=== PATIENT | female | born 1955 | race Caucasian/White ===

== ENCOUNTER 2024-03-08 14:10 | Outpatient (REF) | payer MEDICARE, SELFPAY ==
--- OUTSIDE RECORDS SUMMARY | 2024-03-08 14:14 | XMS_ITS ---
Author Name [facility] Organization Unknown Problems Problem Status Onset Date Problem Type Date of Resoluti on Source Pain in left ankle and joints of left foot active EncounterDiagnosisAct [facility] Pain in right ankle and joints of right foot active EncounterDiagnosisAct HHCCT
--- OUTSIDE RECORDS SUMMARY | 2024-03-08 14:14 | XMS_ITS | Continuity of Care Document ---
Author Organization [facility] Address [address] [place] [address]- Support Name Relationship Address Phone PLASSE, JONATAN Personal Relationship Unknown Unava ilable PLASSE, JONATAN Personal Relationship Unknown Unava ilable PLASSE, JONATAN Personal Relationship Unknown Unava ilable PLASSE, JONATAN Personal Relationship Unknown Unava ilable PLASSE, JONATAN Personal Relationship Unknown Unava ilable PLASSE, JONATAN Personal Relationship Unknown Unava ilable PLASSE, JONATAN Personal Relationship Unknown Unava ilable PLASSE, JONATAN Personal Relationship Unknown Unava ilable PLASSE, JONATAN Personal Relationship Unknown Unava ilable PLASSE, JONATAN Personal Relationship Unknown Unava ilable PLASSE, JONATAN Personal Relationship Unknown Unava ilable PLASSE, JONATAN Personal Relationship Unknown Unava ilable PLASSE, JONATAN Personal Relationship Unknown Unava ilable HORTON, RODNEY sibling Unknown Unavailab le PLASSE, JONATAN Personal Relationship Unknown Unava ilable PLASSE, JONATAN Personal Relationship Unknown Unava ilable PLASSE, JONATAN Personal Relationship Unknown Unava ilable PLASSE, JONATAN Personal Relationship Unknown Unava ilable PLASSE, JONATAN Personal Relationship Unknown Unava ilable PLASSE, JONATAN Personal Relationship Unknown Unava ilable PLASSE, JONATAN Personal Relationship Unknown Unava ilable PLASSE, JONATAN Personal Relationship Unknown Unava ilable PLASSE, JONATAN Personal Relationship Unknown Unava ilable PLASSE, JONATAN Personal Relationship Unknown Unava ilable PLASSE, JONATAN Personal Relationship Unknown Unava ilable PLASSE, JONATAN Personal Relationship Unknown Unava ilable PLASSE, JONATAN Personal Relationship Unknown Unava ilable PLASSE, JONATAN Personal Relationship Unknown Unava ilable PLASSE, JONATAN Personal Relationship Unknown Unava ilable PLASSE, JONATAN Personal Relationship Unknown Unava ilable PLASSE, JONATAN Personal Relationship Unknown Unava ilable PLASSE, JONATAN Personal Relationship Unknown Unava ilable PLASSE, JONATAN Personal Relationship Unknown Unava ilable PLASSE, JONATAN Personal Relationship Unknown Unava ilable PLASSE, JONATAN Personal Relationship Unknown Unava ilable PLASSE, JONATAN Personal Relationship Unknown Unava ilable PLASSE, JONATAN spouse Unknown Unavailable PLAIS, JURGEN child Unknown Unavailable PLASSE, JONATAN Personal Relationship Unknown Unava ilable PLASSE, JONATAN Personal Relationship Unknown Unava ilable Care Team Providers Care Family Law Mediator Name Role Phone Min TRUCK DRIVER INSTRUCTOR, Alyssa Brown Primary Care Physician Encounter [facility] Date(s): 01/13/24 - 02/12/24 [facility] Adult [address] [place], [place] [address] Encounter Type: Triage Allergies, Adverse Reactions, Alerts Substance Criticality Severity Reaction Reaction Severity Status clindamycin Active penicillin rash Active oxyCODONE Hallucinations Activ e Watermelon epi pen Banana Active sulfADIAZINE rash Active Adhesive Bandage Unable to assess criticality Unknown Active [place] itchy Active Nuts itchy Active Tomatoes itch Active Rice itchy Active Immunizations Given and Recorded Vaccine Date Status Refusal Reason tetanus/diphtheria/pertussis, acel(Tdap) 12/14/23 Recorded SARS-CoV-2(COVID-19)mRNA-LNP vac([id number]) 12/08/23 Recorded influenza virus vaccine, inactivated 12/02/23 Zack rded influenza virus vaccine, inactivated 11/22/22 Zack rded influenza virus vaccine, inactivated 11/22/21 Zack rded influenza virus vaccine, inactivated 12/14/20 Zack rded influenza virus vaccine, inactivated 12/17/18 Give n influenza virus vaccine, inactivated 12/28/17 Zack rded influenza virus vaccine, inactivated 02/12/17 Zack rded influenza virus vaccine, inactivated 12/29/16 Zack rded influenza virus vaccine, inactivated 1 12/22/15 Re corded influenza virus vaccine, inactivated 12/25/14 Zack rded influenza virus vaccine, inactivated 11/03/12 Zack rded influenza virus vaccine, inactivated 12/22/11 Zack rded influenza virus vaccine, inactivated 01/13/11 Zack rded influenza virus vaccine, inactivated 12/19/09 Zack rded SARS-CoV-2 (COVID-19) mRNA-1273 vaccine 2 12/13/22 Recorded SARS-CoV-2 (COVID-19) mRNA-1273 vaccine 06/20/21 R ecorded SARS-CoV-2 (COVID-19) mRNA-1273 vaccine 06/20/21 R ecorded SARS-CoV-2 (COVID-19) mRNA-1273 vaccine 01/17/21 R ecorded SARS-CoV-2 (COVID-19) mRNA-1273 vaccine 04/30/20 R ecorded SARS-CoV-2 (COVID-19) mRNA-1273 vaccine 04/02/20 R ecorded RSV vaccine preF3, recombinant 12/01/22 Recorded pneumococcal 20-valent conjugate vaccine 3 11/04/22 Given [id number] bivalent booster vax 08/11/22 Recorded tetanus-diphtheria toxoids (Td) 04/23/22 Given SARS-CoV-2 mRNA ([id number]) vax 4 12/06/21 Recorded zoster vaccine, inactivated 10/19/20 Recorded zoster vaccine, inactivated 08/16/20 Recorded Flu Vaccine 12/22/19 Recorded Influenza Virus Vaccine (oldterm) 12/20/19 Recorde d Zoster Vaccine Live 10/01/15 Recorded Tetanus Toxoid 12/06/12 Recorded Mumps Virus Vaccine 07/17/11 Recorded Varicella Virus Vaccine 01/04/97 Recorded Rubella Virus Vaccine 01/04/97 Recorded 1Location History: [facility] employer 2Result Comment: amber thomas 3Result Comment: [id number] 4Result Comment: Moderna Covid Bivalent Booster [facility] Pharmacy Medications amLODIPine 5 mg oral tablet 1 tablet, By Mouth, Daily, # 90 tablet, 1 Refills, Maintenance, 10/09/23 6:43:00 AM EDT, [id number], 158, cm, 07/07/23 9:06:00 EDT, Height, 98.9, kg, 08/22/22 10:20:00 EDT, Dry Weight Start Date: 10/09/23 Status: Ordered Quantity: 90.0 Unit: tablet Repeat number: 1 atorvastatin 40 mg oral tablet 1 tablet, By Mouth, Daily, # 90 tablet, 1 Refills, Maintenance, 11/06/23 8:24:00 AM EDT, [facility] #[id number], 158, cm, 11/06/23 7:53:00 EDT, Height, 98.9, kg, 08/22/22 10:20:00 EDT, Dry Weight Start Date: 11/06/23 Status: Ordered Quantity: 90.0 Unit: tablet Repeat number: 2 Calcium 600 +D By Mouth, 2 times a day, 0 Refills, Maintenance, 09/11/10 11:21:27 AM EDT Start Date: 09/11/10 Status: Ordered Repeat number: 1 Clobetasol (Eqv-Temovate) 0.05% topical cream 0 Refills, Maintenance, 02/15/20 12:19:00 AM EST, Partial fill upon patient request Start Date: 02/15/20 Status: Ordered Repeat number: 1 CPAP Equipment See Instructions, # 1 each, Refills 11, Tot. Refills 11, Maintenance, dx: EFRAIN mask,tubing,filers,headgear, chinstrap, waterchamber , 12/17/18 7:15:44 AM EDT, Compound Start Date: 12/17/18 Status: Ordered Quantity: 1.0 Unit: each Repeat number: 12 diclofenac 1% topical gel 0 Refills, Maintenance, 05/07/23 9:09:00 AM EST, Partial fill upon patient request if the prescription is for a schedule II opioid drug. Start Date: 05/07/23 Status: Ordered Repeat number: 1 Dupixent Pre-filled Pen 300 mg/2 mL subcutaneous solution = 300 mg, Subcutaneous Infusion, Once, 0 Refills, Maintenance, 08/22/22 8:25:00 AM EDT, Partial fill upon patient request if the prescription is for a schedule II opioid drug. Start Date: 08/22/22 Status: Ordered Repeat number: 1 EpiPen 2-Max 0.3 mg injectable kit = 0.3 mg, Intramuscular, Once, may repeat if necessary- seek emergency medical attention if used, #2 each, 1 Refills, Soft Stop, 11/04/22 9:21:00 AM EDT, [facility]/pharmacy #[id number], 158, cm, 11/04/22 8:53:00EDT, Height, 98.9, kg, 08/22/22 10:20:00 EDT, Dry Weight Start Date: 11/04/22 Status: Ordered Quantity: 2.0 Unit: each Repeat number: 2 levothyroxine 0.025 mg oral tablet 1 tablet, By Mouth, Daily, # 90 tablet, 1 Refills, Maintenance, 11/06/23 8:24:00 AM EDT, [facility] #[id number], 158, cm, 11/06/23 7:53:00 EDT, Height, 98.9, kg, 08/22/22 10:20:00 EDT, Dry Weight Start Date: 11/06/23 Status: Ordered Quantity: 90.0 Unit: tablet Repeat number: 2 LORazepam 1 mg oral tablet 1 tablet = 1 mg, By Mouth, Daily at bedtime, # 30 tablet, 5 Refills, Maintenance, 02/02/18 9:00:00 PM EST, [facility] #[id number], 11/27/23, 158, cm, 11/06/23 7:53:00 EDT, Height, 98.9, kg, 08/22/22 10:20:00 EDT, Dry Weight Start Date: 02/02/18 Status: Ordered Quantity: 30.0 Unit: tablet Repeat number: 6 Multivitamin 1 tablet, By Mouth, Daily, 0 Refills, Maintenance, 12/24/10 3:44:07 PM EDT Start Date: 12/24/10 Status: Ordered Repeat number: 1 omeprazole 20 mg oral enteric coated capsule 1 capsule, By Mouth, 2 times a day, # 180 capsule, 1 Refills, Maintenance, 01/04/24 11:50:00 AM EDT, [facility] #[id number], 158, cm, 11/06/23 7:53:00 EDT, Height, 98.9, kg, 08/22/22 10:20:00 EDT, Dry Weight Start Date: 01/04/24 Status: Ordered Quantity: 180.0 Unit: capsule Repeat number: 2 Ozempic 8 mg/3 mL (2 mg dose) subcutaneous solution = 2 mg, Subcutaneous Injection, Every week, in the abdomen, thigh, or upper arm, # 3 mL, 5 Refills,Maintenance, 11/06/23 8:32:00 AM EDT, Solution, [facility] #[id number], 158, cm, 11/06/23 7:53:00 EDT, Height, 98.9, kg, 08/22/22 10:20:00 EDT, Dry Weight Start Date: 11/06/23 Status: Ordered Quantity: 3.0 Unit: mL Repeat number: 6 tacrolimus 0.1% topical ointment 0 Refills, Maintenance, 02/15/20 12:19:00 AM EST, Partial fill upon patient request Start Date: 02/15/20 Status: Ordered Repeat number: 1 Problem List Condition Confirmation Course Effective Dates Status H ealth Status Informant Benign essential hypertension Confirmed Active Carpal tunnel syndrome, bilateral Confirmed Active Cervical disc disease Confirmed Active Calcification of aorta Confirmed Active Eczema Confirmed Active Acid reflux Confirmed Active Hammertoe of right foot Confirmed Active History of removal of laparoscopic gastric banding device Confirmed Active Hyperlipidemia Confirmed Active Hypothyroidism Confirmed Active Mediastinal mass Confirmed Active Migraine Confirmed Active Anxiety and depression Confirmed Active Fatty liver disease, nonalcoholic Confirmed Active Obese class I Confirmed Active EFRAIN (obstructive sleep apnea) 1 Confirmed Active Osteopenia Confirmed Active Tubular adenoma 2 Confirmed Active DM II (diabetes mellitus, type II), controlled Confirmed Active 1untreated 2repeat colonoscopy due 06/2020 Social History Social History Type Response Smoking Status Never smoker entered on: 05/30/14 Sex Female Sex Representation Female (finding) Patient Care team information Care Team Personnel Name: Alyssa Copeland NP Position: [facility] PCO Associate Professional Member Role: PCP Address: [address] [place] [phone]- Telecom: Care Team Related Persons Name: JURGEN DOAN Name: JONATAN PINK Name: RODNEY HORTON Insurance Providers Guarantor name: [facility] Health Plan Information #: 1 Payer: MEDICARE PART B OUTPT Member Number: NA Policy Number: NA Group Number: NA Health Plan Information #: 2 Payer: MEDEX Member Number: NA Policy Number: NA Group Number: NA
== END 2024-03-08 14:11 | disposition home or self-care (01) ==
LOC: CF 14:10
DX: Z13.89 Encounter for screening for other disorder (principal)

== ENCOUNTER 2024-03-25 14:53 | Outpatient (REF) | payer MEDICARE, SELFPAY ==
--- NOTE | 2024-03-25 15:00 | EMG_ITS ---
Chief complaint: Right hand numbness Reason for referral: Evaluate for Carpal Tunnel Syndrome Referred by: Gabino CORADO Procedure done: Right upper extremity NCS/EMG Precautions and/or limitations: None The limb temperature was monitored continuously and remained between 32-36 degrees C during the performance of the NCS. Nerve Conduction Studies Anti Sensory Summary Table ?Stim Site NR Onset (ms) Norm Onset (ms) Peak (ms) Norm Peak (ms) O-P Amp (?V) Norm O-P Amp Site1 Site2 Delta-0 (ms) Dist (cm) Alek (m/s) Norm Alek (m/s) Right Median Anti Sensory (2nd Digit) Wrist ? 3.8 4.5 <3.6 19.6 >10 Wrist 2nd Digit 3.8 14.0 37 Right Radial Anti Sensory (Thumb) Forearm ? 1.5 2.1 <3.1 13.5 Forearm Thumb 1.5 0.0 Right Ulnar Anti Sensory (5th Digit) Wrist ? 2.6 3.2 <3.7 19.7 >15.0 Wrist 5th Digit 2.6 14.0 54 Motor Summary Table ?Stim Site NR Onset (ms) Norm Onset (ms) O-P Amp (mV) Norm O-P Amp iAmp (mV) Amp (1st) (%) Site1 Site2 Delta-0 (ms) Dist (cm) Alek (m/s) Norm Alek (m/s) Right Median Motor (Abd Poll Brev) Wrist ? 5.2 <3.9 8.1 >4.5 9.0 100.0 Elbow Wrist 4.1 19.0 46 >45 Elbow ? 9.3 7.7 8.4 95.1 Right Ulnar Motor (Abd Dig Minimi) Wrist ? 2.7 <3.0 12.1 >5 14.1 100.0 B Elbow Wrist 2.9 18.5 64 >45 B Elbow ? 5.6 10.2 12.2 84.3 A Elbow B Elbow 1.4 10.0 71 >45 A Elbow ? 7.0 9.8 11.8 81.0 EMG ?Side Muscle Nerve Root Ins Act Fibs Psw Amp Dur Poly Recrt Int Pat Comment Right 1stDorInt Ulnar C8-T1 Nml Nml Nml Nml Nml 0 Nml Complete Right FlexCarRad Median C6-7 Nml Nml Nml Nml Nml 0 Nml Complete Right Biceps Musculocut C5-6 Nml Nml Nml Nml Nml 0 Nml Complete Right Triceps Radial C6-7-8 Nml Nml Nml Nml Nml 0 Nml Complete Right Deltoid Axillary C5-6 Nml Nml Nml Nml Nml 0 Nml Complete FINDINGS: Right median motor nerve showed prolonged distal latency, normal amplitude and normal conduction velocity. Right median sensory nerve showed prolonged peak latency. Evidence of possible Vito Berkley anastomosis was seen, which is a normal anatomic variant. All other nerves tested were within normal. Concentric needle EMG was performed in selected muscles of the right upper extremity. Study did not reveal signs of electric abnormalities as shown in the table above. IMPRESSION: 1. This is an abnormal study. 2. There is electrodiagnostic evidence for right moderate-severe median neuropathy at the wrist, consistent with carpal tunnel syndrome. 3. There is no electrodiagnostic evidence for ulnar neuropathy, brachial plexopathy, or cervical radiculopathy. 4. Evidence of possible Vito Berkley anastomosis was seen, which is a normal anatomic variant. Thank you for your kind referral. Rosina Shi MD, OBINNA Board Certified, [place] [employer] and Rehabilitation (ABPMR) Board Certified, [place] Board of Electrodiagnostic Medicine (ABEM) [place]OD[place] [id number] [facility]
--- OUTSIDE RECORDS SUMMARY | 2024-03-25 16:11 | XMS_ITS | Continuity of Care Document ---
Author Organization [facility] Address [address] [address]- Support Name Relationship Address Phone PLASSE, JONATAN [...] Unknown Unava ilable Care Team Providers Care Acidizer Helper Name Role Phone Min CLEANING ATTENDANT, Alyssa Brown Primary Care Physician Encounter 03/17/24 - 03/24/24 [facility] [address], [address] [place] [address]- Attending Physician: Deidra Bearden MD Admitting Physician: Deidra Bearden MD Referring Physician: Deidra Bearden MD Encounter Type: OutPatient One Time Allergies, Adverse Reactions, Alerts Substance Criticality Severity Reaction Reaction Severity Status clindamycin Active penicillin rash Active Watermelon epi pen Banana Active oxyCODONE Hallucinations Activ e sulfADIAZINE rash Active Adhesive Bandage Unable to assess criticality Unknown Active [place] itchy Active Nuts itchy Active Tomatoes itch Active Rice itchy Active Immunizations Given and Recorded Vaccine Date Status Refusal Reason tetanus/diphtheria/pertussis, acel(Tdap) 12/14/23 Recorded SARS-CoV-2(COVID-19)mRNA-LNP vac([id number]) 12/08/23 Recorded influenza virus vaccine, inactivated 12/02/23 [...] pneumococcal 20-valent conjugate vaccine 3 11/04/22 Given [id number] bivalent booster vax 08/11/22 Recorded tetanus-diphtheria toxoids (Td) 04/23/22 Given SARS-CoV-2 mRNA ([id number]) vax 4 12/06/21 Recorded zoster vaccine, inactivated 10/19/20 Recorded zoster vaccine, inactivated 08/16/20 Recorded Flu Vaccine 12/22/19 Recorded Influenza Virus Vaccine (oldterm) 12/20/19 Recorde d Zoster Vaccine Live 10/01/15 Recorded Tetanus Toxoid 12/06/12 Recorded Mumps Virus Vaccine 07/17/11 Recorded Varicella Virus Vaccine 01/04/97 Recorded Rubella Virus Vaccine 01/04/97 Recorded 1Location History: [facility] employer 2Result Comment: [facility]ber [facility]omas 3Result Comment: [id number] 4Result Comment: Moderna Covid Bivalent Booster [facility] Pharmacy Medications amLODIPine 5 mg oral tablet 1 tablet, By Mouth, Daily, # 90 tablet, 1 Refills, Maintenance, 10/09/23 6:43:00 AM EDT, [id number], 158, cm, 07/07/23 9:06:00 EDT, Height, 98.9, kg, 08/22/22 10:20:00 EDT, Dry Weight Start Date: 10/09/23 Status: Ordered Quantity: 90.0 Unit: tablet Repeat number: 1 atorvastatin 40 mg oral tablet 1 tablet, By Mouth, Daily, # 90 tablet, 1 Refills, Maintenance, 11/06/23 8:24:00 AM EDT, [facility] #[id number], 158, cm, 11/06/23 7:53:00 EDT, Height, 98.9, [...] 08/22/22 Status: Ordered Repeat number: 1 EpiPen 2-Mxa 0.3 mg injectable kit = 0.3 mg, Intramuscular, Once, may repeat if necessary- seek emergency medical attention if used, #2 each, 1 Refills, Soft Stop, 11/04/22 9:21:00 AM EDT, [facility]/pharmacy #[id number], 158, cm, 11/04/22 8:53:00EDT, Height, 98.9, kg, 08/22/22 10:20:00 EDT, Dry Weight Start Date: 11/04/22 Status: Ordered Quantity: 2.0 Unit: each Repeat number: 2 levothyroxine 0.025 mg oral tablet 1 tablet, By Mouth, Daily, # 90 tablet, 1 Refills, Maintenance, 11/06/23 8:24:00 AM EDT, [facility] #[id number], 158, cm, 11/06/23 7:53:00 EDT, Height, 98.9, kg, 08/22/22 10:20:00 EDT, Dry Weight Start Date: 11/06/23 Status: Ordered Quantity: 90.0 Unit: tablet Repeat number: 2 LORazepam 1 mg oral tablet 1 tablet = 1 mg, By Mouth, Daily at bedtime, # 30 tablet, 5 Refills, Maintenance, 02/02/18 9:00:00 PM EST, [facility] #[id number], 11/27/23, 158, cm, 11/06/23 7:53:00 EDT, Height, [...] 1 Refills, Maintenance, 01/04/24 11:50:00 AM EDT, [facility] #[id number], 158, cm, 11/06/23 7:53:00 EDT, Height, 98.9, kg, 08/22/22 10:20:00 EDT, Dry Weight Start Date: 01/04/24 Status: Ordered Quantity: 180.0 Unit: capsule Repeat number: 2 Ozempic 8 mg/3 mL (2 mg dose) subcutaneous solution = 2 mg, Subcutaneous Injection, Every week, in the abdomen, thigh, or upper arm, # 3 mL, 5 Refills,Maintenance, 11/06/23 8:32:00 AM EDT, Solution, [facility] #[id number], 158, cm, 11/06/23 7:53:00 EDT, Height, 98.9, [...] Confirmed Active 1untreated 2repeat colonoscopy due 06/2020 Results Radiology Reports * Exam Date Time Procedure Performing Provider Status 03/17/24 11:21 AM MM Digital Mammo Screening Lillian Donald; Auth (Verified) Notes: (MM Digital Mammo Screening) Reason For Exam: Z12.31 SCREEN RESULT: MM Digital Mammo Screening PROCEDURE: MM Digital Mammo Screening INDICATION: Screening for breast cancer. No known palpable abnormalities. Previous reduction mammoplasties. COMPARISON: Back to 03/08/2021. TECHNIQUE:Full-field digital CC and MLO 3D tomosynthesis images of both breasts were acquired. Computer-aided detection (CAD) was utilized in the interpretation of this study. DENSITY: There are scattered areas of fibroglandular density. FINDINGS: No suspicious masses, microcalcifications, areas of architectural distortion, or skin thickening to suggest malignancy. Post reduction changes are again noted. IMPRESSION: No mammographic evidence of malignancy. RECOMMENDATION: Annual mammographic screening. BI-RADS: 2 (Benign) Lay letter mailed to patient WSN: [id number] Ordering Physician: Deidra Bearden Dictated By: Jose Adame MD Dictated Date/Time: 03/17/24 1:01 pm Reviewed By: Jose Adame MD Signed By: Jose Adame MD Signed Date/Time: 03/17/24 1:01 pm Transcribed By: ADRIANA Web Manager Date/Time: 03/17/24 12:57 pm Birads: Social History Social History Type Response Smoking Status Never smoker entered on: 05/30/14 Sex Female Sex Representation Female (finding) Patient Care team information Care Team Personnel Name: Alyssa Copeland NP Position: S PCO Associate Professional Member Role: PCP Address: [address] [place] [id number] Telecom: Care Team Related Persons Name: JURGEN DOAN Name: JONATAN PINK Name: RODNEY HORTON Insurance Providers Guarantor name: [facility] Health Plan Information #: 1 Payer: MEDICARE PART B OUTPT Member Number: [id number] Policy Number: NA Group Number: NA Health Plan Information #: 2 Payer: MEDEX Member Number: [id number] Policy Number: NA Group Number: NA
--- OUTSIDE RECORDS SUMMARY | 2024-03-25 16:11 | XMS_ITS ---
Author Organization [employer] [facility] Care Team Providers Care Configuration Release Manager Name Role Phone Pcp, No Primary Care Provider Unavailabl e Allergies Allergy Classification Reported Allergen(s) Allergy Type Date of Onset Reaction(s) Care Provider Facility acetaminophen / oxyCODONE (1 source) acetaminophen / oxyCODONE Allergy to drug 11-09-2 024 Delerium/Conf usion/Psychos is Antony Sanchez MD Work Phone: [facility] doxycycline (1 source) doxycycline Allergy to drug 11-09-2 024 Other (See Comments) Lon Ludwig MA Work Phone: [facility] Work Phone: Comment on above: Patient reports natasha oral dermatitis Penicillins (antibiotic) (1 source) Penicillins Allergy to drug 11-09-2 024 Rash/Dermatit is Antony Sanchez MD Work Phone: [facility] Sulfonamides (antibiotic) (1 source) Sulfonamides (Antibiotic) Allergy to drug 11-09-2 024 Rash/Dermatit is Antony Sanchez MD Work Phone: [facility] Encounters Encounter Date Encounter Type Encounter Diagnosis Care Provider Facility Start: 11-10-2023 15:06-0400 Patient encounter procedure [facility] Ambulatory Start: 11-10-2023 15:00-0400 End: 11-10-2023 16:53-0400 Office/outpatient new low [facility] 30 minutes Arthralgia of the ankle and/or foot Antony Sanchez MD Work Phone: [facility] Comment on above: Pain in left ankle a nd joints of left foot (Primary Dx); Pain in right ankle and joints of right foot End: 11-10-2023 16:53-0400 Patient encounter procedure [facility] Ambulatory Payers Date Payer Normalized Payer [id number] 08-21-2020 [id number] Plan of Treatment Date Care Activity Detail Author Start: 11-22-2023 COVID-19 Vaccine () COVID-19 Vaccine () [facility] Start: 10-22-2023 Administration of influenza vaccine Influenza Vaccine [facility] Start: 09-14-2020 DXA Bone Density (Females,Ages 65 and older) DXA Bone Density (Females,Ages 65 and older) [facility] Start: 09-14-2020 Pneumococcal Vaccines 65+ (1 of 1 - PCV) Pneumococcal Vaccines 65+ (1 of 1 - PCV) [facility] Start: 2015 RSV Vaccine 60 years and older and Patients (1 - 1-dose 60+ series) RSV Vaccine 60 years and older and Patients (1 - 1-dose 60+ series) [facility] Start: 09-14-2005 Hzv zoster vacc recombinant adjuvanted im njx Zoster (Shingles) Vaccine (1 of 2) [facility] Start: 09-14-2000 Screening for malignant neoplasm of colon Colonoscopy [facility] Start: 1995 Mammography Mammogram [facility] Start: 09-14-1974 DTaP/Tdap/Td Vaccines (1 - Tdap) DTaP/Tdap/Td Vaccines (1 - Tdap) [facility] Start: 1955 Hepatitis C screening Hepatitis C Virus Screening [facility] Problems Past or Other Problems Problem Classification Problem Date Last Recorded Documented Date Chronic Condition Indicator Provider Other non-traumatic joint disorders (2 sources) Arthralgia of the ankle and/or foot; Translations: [Pain in left ankle and joints of left foot] 11-10-2023 Episodic Documentation Systemgenerated Work Phone: Procedures Date Procedure Procedure Detail Performing Clinician Start: 11-10-2023 Radiologic examinati on ankle 2 views completed Antony Sanchez MD Work Phone: Results Test Name Value Interpretation Reference Range Facility Date Time Result Note XR Ankle 2 views-Bilateralon 11-10-2023 [facility] and images reviewed by orthopedic provider. Any findings are documented within ambulatory encounter note on date of service. [facility] 11-10-19 24 15:40-04 00 This exam was performed in office at [facility] and images reviewed by orthopedic provider. Any findings are documented within ambulatory encounter note on date of service. Social History Date Type Detail Facility Start: 1955 Sex Assigned At Not on file [facility] Tobacco smoking stat [facility] Tobacco smoking consumption unknown [facility] Gender identity Not on file [facility] History of Present illness Narrative 11-10-2023 Antony Sanchez MD - 11/10/2023 3:00 PM EDT Note Date & Type Note Facility 11-10-2023 History of Presen t illness Narrative Images from the original note were not included. [address] [facility] [address] [address] Encounter Date: 11/10/2023 1. Pain in left ankle and joints of left foot XR Ankle 2 views-Bilateral XR Foot 3+ views-Bilateral 2. Pain in right ankle and joints of right foot XR Ankle 2 views-Bilateral XR Foot 3+ views-Bilateral Assessment & Plan Razia is a pleasant 68-year-old female seen today by me for the first time at orthopedic [facility]. I have known her in the past, status post previous bilateral forefoot reconstruction including right foot Merrick osteotomy, lesser metatarsal Jefry osteotomies, and left foot lesser metatarsal Jefry osteotomies, for preoperative metatarsalgia. She feels as though her metatarsalgia is largely resolved, but she has bilateral hallux rigidus, clinically and radiographically, and is here today to discuss conservative and surgical treatment options. I have detailed both, and expressed my willingness to follow-up with Razia in which ever way she prefers. We have talked about the potential utility of cortisone injection, versus first MTP fusion for her hallux rigidus pain. Follow-up is arranged. History of Present Illness: Razia Block is a 68 y.o. female who presents today for Chief Complaint Patient presents with Right Foot - Pain Left Foot - Pain . Above Physical Exam On exam, old surgical incisions well-healed. Lesser toes generally well aligned bilaterally. First MTP arthritic symptoms bilaterally, with pain at the dorsal aspect of the first MTP, limitation of sagittal range of motion. Old hardware is not palpable. Imaging Imaging Impression: Bilateral foot x-rays demonstrate bilateral hallux rigidus, and well-healed lesser metatarsal osteotomies with intact screw fixation. Lesser MTPs are congruent bilaterally. Procedure Procedures Data Review Visit Orders. 1. Pain in left ankle and joints of left foot - XR Ankle 2 views-Bilateral - XR Foot 3+ views-Bilateral 2. Pain in right ankle and joints of right foot - XR Ankle 2 views-Bilateral - XR Foot 3+ views-Bilateral Review of Systems Review of Systems Above Past Medical History No past medical history on file. No past surgical history on file. No family history on file. Medication List No current outpatient medications on file. Allergies Allergies Allergen Reactions Doxycycline Other (See Comments) Patient reports perioral dermatitis Penicillins Rash/Dermatitis Percocet [Oxycodone-Acetaminophen] Delerium/Confusion/Psychosis Sulfa Antibiotics Rash/Dermatitis Antony Sanchez MD documented in this encounter [facility] Clinical Note 11-10-2023 Note Date & Type Note Facility 11-10-2023 Licensing Representative Authentication Interface Message Text [address] [facility] [address] [address] Encounter Date: 11/10/2023 1. Pain in left ankle and joints of left foot XR Ankle 2 views-Bilateral XR Foot 3+ views-Bilateral 2. Pain in right ankle and joints of right foot XR Ankle 2 views-Bilateral XR Foot 3+ views-Bilateral Assessment & Plan Razia is a pleasant 68-year-old female seen today by me for the first time at orthopedic [facility]. I have known her in the past, status post previous bilateral forefoot reconstruction including right foot Merrick osteotomy, lesser metatarsal Jefry osteotomies, and left foot lesser metatarsal Jefry osteotomies, for preoperative metatarsalgia. She feels as though her metatarsalgia is largely resolved, but she has bilateral hallux rigidus, clinically and radiographically, and is here today to discuss conservative and surgical treatment options. I have detailed both, and expressed my willingness to follow-up with Razia in which ever way she prefers. We have talked about the potential utility of cortisone injection, versus first MTP fusion for her hallux rigidus pain. Follow-up is arranged. History of Present Illness: Razia Block is a 68 y.o. female who presents today for Chief Complaint Patient presents with Right Foot - Pain Left Foot - Pain . Above Physical Exam On exam, old surgical incisions well-healed. Lesser toes generally well aligned bilaterally. First MTP arthritic symptoms bilaterally, with pain at the dorsal aspect of the first MTP, limitation of sagittal range of motion. Old hardware is not palpable. Imaging Imaging Impression: Bilateral foot x-rays demonstrate bilateral hallux rigidus, and well-healed lesser metatarsal osteotomies with intact screw fixation. Lesser MTPs are congruent bilaterally. Procedure Procedures Data Review Visit Orders. 1. Pain in left ankle and joints of left foot - XR Ankle 2 views-Bilateral - XR Foot 3+ views-Bilateral 2. Pain in right ankle and joints of right foot - XR Ankle 2 views-Bilateral - XR Foot 3+ views-Bilateral Review of Systems Review of Systems Above Past Medical History No past medical history on file. No past surgical history on file. No family history on file. Medication List No current outpatient medications on file. Allergies Allergies Allergen Reactions Doxycycline Other (See Comments) Patient reports perioral dermatitis Penicillins Rash/Dermatitis Percocet [Oxycodone-Acetaminophen] Delerium/Confusion/Psychosis Sulfa Antibiotics Rash/Dermatitis Antony Sanchez MD [facility] Clinical Note 11-10-2023 Note Date & Type Note Facility 11-10-2023 Licensing Representative Authentication Interface Message Text [address] [facility] [address] [address] Encounter Date: 11/10/2023 1. Pain in left ankle and joints of left foot XR Ankle 2 views-Bilateral XR Foot 3+ views-Bilateral 2. Pain in right ankle and joints of right foot XR Ankle 2 views-Bilateral XR Foot 3+ views-Bilateral Assessment & Plan Razia is a pleasant 68-year-old female seen today by me for the first time at orthopedic [facility]. I have known her in the past, status post previous bilateral forefoot reconstruction including right foot Merrick osteotomy, lesser metatarsal Jefry osteotomies, and left foot lesser metatarsal Jefry osteotomies, for preoperative metatarsalgia. She feels as though her metatarsalgia is largely resolved, but she has bilateral hallux rigidus, clinically and radiographically, and is here today to discuss conservative and surgical treatment options. I have detailed both, and expressed my willingness to follow-up with Razia in which ever way she prefers. We have talked about the potential utility of cortisone injection, versus first MTP fusion for her hallux rigidus pain. Follow-up is arranged. History of Present Illness: Razia Block is a 68 y.o. female who presents today for Chief Complaint Patient presents with Right Foot - Pain Left Foot - Pain . Above Physical Exam On exam, old surgical incisions well-healed. Lesser toes generally well aligned bilaterally. First MTP arthritic symptoms bilaterally, with pain at the dorsal aspect of the first MTP, limitation of sagittal range of motion. Old hardware is not palpable. Imaging Imaging Impression: Bilateral foot x-rays demonstrate bilateral hallux rigidus, and well-healed lesser metatarsal osteotomies with intact screw fixation. Lesser MTPs are congruent bilaterally. Procedure Procedures Data Review Visit Orders. 1. Pain in left ankle and joints of left foot - XR Ankle 2 views-Bilateral - XR Foot 3+ views-Bilateral 2. Pain in right ankle and joints of right foot - XR Ankle 2 views-Bilateral - XR Foot 3+ views-Bilateral Review of Systems Review of Systems Above Past Medical History No past medical history on file. No past surgical history on file. No family history on file. Medication List No current outpatient medications on file. Allergies Allergies Allergen Reactions Doxycycline Other (See Comments) Patient reports perioral dermatitis Penicillins Rash/Dermatitis Percocet [Oxycodone-Acetaminophen] Delerium/Confusion/Psychosis Sulfa Antibiotics Rash/Dermatitis Antony Sanchez MD [facility] Amb[facility] Evaluation note Note Date & Type Note Facility Evaluation note Diagnosis Pain in left ankle and joints of left foot- Primary Pain in right ankle and joints of right foot documented in this encounter [facility] Reason for visit Narrative Note Date & Type Note Facility Reason for visit Narrative Reason Comments Pain Pain [facility] Clinical Note Note Date & Type Note Facility XR ANKLE 2 VIEWS-BILATERAL This exam was performed in office at [facility] and images reviewed by orthopedic provider. Any findings are documented within ambulatory encounter note on date of service. Ankle pain eval Electronically Signed on: Kizzy 12:00 AM by Patient Name: JOESPH AUGUST - Patient : 1955 - Referring Provider: , [facility] Clinical Note Note Date & Type Note Facility XR FOOT 3+ VIEWS-BILATERAL This exam [facility] and images reviewed by orthopedic provider. Any findings are documented within ambulatory encounter note on date of service. new pt eval Electronically Signed on: Kizzy 12:00 AM by Patient Name: JOESPH AUGUST - Patient : 1955 - Referring Provider: , [facility] Additional Source Comments Care Teams (unrecognized sec tion and content) Configuration Release Manager Relationship Specialty Start Date End Date PcpLona PCP - General General Medicine 11/10/23 This clinical document has been generated using [employer] software that has been certified by the Office of the National Coordinator for Health Information Technology (ONC 15.99.04.3023.Diam.[id number]) and the National Committee for Dielectric Press Operator (NCQA, as an eMeasure certified technology). FOR RECORDS PERTAINING TO PATIENTS WHO ARE OR HAVE BEEN ENROLLED IN A CHEMICAL DEPENDENCY/SUBSTANCEABUSE PROGRAM, SOME INFORMATION MAY BE OMITTED. This clinical summary was aggregated from multiple sources. Caution should be exercised in using it in the provision of clinical care. This summary normalizes information from multiple sources, and as a consequence, information in this document may materially change the coding, format and clinical context of patient data. In addition, data may be omitted in some cases. CLINICAL DECISIONS SHOULD BE BASED ON THE PRIMARY CLINICAL RECORDS. [employer] provides no warranty or guarantee of the accuracy or completeness of information in this document.The following information is based on time limited clinical information
== END 2024-03-25 14:54 | disposition home or self-care (01) ==
LOC: HO.NEURO 14:53
DX: R20.0 Anesthesia of skin (principal); R20.2 Paresthesia of skin
CPT/HCPCS: 95886; 95909

== ENCOUNTER → 2024-03-25 15:00 | Outpatient (BNV) | payer MEDICARE, SELFPAY | PROVIDERS: Visit Provider Physical Medicine & Rehabilitation | DX: G56.01 Carpal tunnel syndrome, right upper limb (principal) | CPT/HCPCS: 95886; 95909 ==

== ENCOUNTER 2024-04-05 10:47 | Outpatient (AMB) | payer MEDICARE, SELFPAY ==
--- NOTE | 2024-04-05 11:12 | MHC.OFFVIS ---
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 States symptoms have been present since 2017 and has worsen. States numbness is mainly on her index, middle finger and thumb however states she feels like all of her finger are numb. Patient would like to discuss surgical intervention. EMG done 03/25/24. Also mentioned she had water balloon cyst and was removed Oct [address] Shipley and feels like its back. 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 We had to work with her to focus on her chief complaint today, which was her right hand numbness. She complains of numbness in the median nerve distribution. Symptoms intermittent, but daily, worse at night, She says this has been present since ~2016 and has been worsening since. She also complains of pain in her hand along with the numbness, which she finds very bothersome. She describes this as burning. She also complains of a mass on the dorsal aspect her right small finger distal to the D IP joint. She says she had a cyst removed by Dr. Shipley at [facility] in ~10/2021, and she is worried this has returned. She says she had a left carpal tunnel release in ~10/[address] Shipley at [facility]. She says her sensation is normal but she says she reports having tightness in her thumb and surgical site since she received an injection from him. She is unsure of the specific injection she received. 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 Review of Systems Const All systems reviewed & are unremarkable except as noted in HPI and below Physical Exam Vital Signs: BMI result Body Mass Index 32.2 Const General: cooperative, healthy appearing and no acute distress Orientation/consciousness: patient oriented x3 HEENT Head: Yes normocephalic and Yes atraumatic Eyes EOM: EOMs intact bilaterally Resp Effort & Inspection: normal respiratory effort and able to speak in complete sentences Cardio Jugular venous distension: no JVD Skin General skin exam: turgor normal Rashes: no rashes Neuro General: patient oriented x3 Extrem Other: Evaluation of Right Upper Extremity: The patient is alert, oriented, and in no acute distress Neuro: Dense numbness in the median nerve distribution. Normal sensation in the ulnar nerve distribution No thenar or intrinsic wasting Good APB muscle belly firing and good finger cross Vascular: Cap refill brisk ROM: She can make a fist and extend all her digits bilaterally Skin: No lacerations or abrasions. General: No Ecchymosis. No Erythema or evidence of infection. Tender over the small finger DIP joint Heberden's nodes about the DIP joint No evidence of mucous cyst recurrence at this time Regarding the left hand: Tender over the basal joint + Shoulder sign + CMC grind Nerve Conduction study: Right-side only IMPRESSION: 1. This is an abnormal study. 2. There is electrodiagnostic evidence for right moderate-severe median neuropathy at the wrist, consistent with carpal tunnel syndrome. 3. There is no electrodiagnostic evidence for ulnar neuropathy, brachial plexopathy, or cervical radiculopathy. 4. Evidence of possible Vito Berkley anastomosis was seen, which is a normal anatomic variant. Rosina Shi MD, OBINNA 03/25/24 Psych Appearance: grossly normal Affect: normal affect Attitude: cooperative Assessment & Plan Assessment & Plan (1) Carpal tunnel syndrome of right wrist: Code(s): G56.01 - Carpal tunnel syndrome, right upper limb Category: Medical (2) Arthritis of carpometacarpal (CMC) joint of left thumb: Code(s): M18.12 - Unilateral primary osteoarthritis of first carpometacarpal joint, left hand Category: Medical (3) History of carpal tunnel surgery of left wrist: Code(s): Z98.890 - Other specified postprocedural states Category: Surgical (4) Arthritis of finger of right hand: Comment: R SF DIP Code(s): M19.041 - Primary osteoarthritis, right hand Category: Medical Plan Assessment & Plan: 1. Right carpal tunnel syndrome, moderate-severe With dense numbness Evidence of possible Vito Berkley anastomosis I educated her about this condition I discussed operative and non-operative treatment options The patient would like to proceed with surgery The risks and benefits of operative treatment were discussed with the patient and the patient wishes to proceed with surgery. These risks include, but are not limited to risk of damage to blood vessels, nerves, tendons, infection, recurrence, incomplete relief of preoperative symptoms, persistent pain, possible need for further surgery and the risks associated with regional blocks and anesthesia. The plan is to take the patient to the operating room sometime in the next few weeks for the following procedures: 1. Right carpal tunnel release, under local All of the preoperative paperwork including the consent was reviewed today. All the patient's questions were answered. The patient understands that they will be contacted by our lead qa analyst soon to schedule this procedure She denies Diabetes, blood thinners, asthma, heart, lung, kidney issues She says she has high anxiety and is nervous about having surgery. I recommend she speak with her PCP concerning taking her anti-anxiety medication prior to her procedure 2. Left basal joint arthritis I educated her about this condition I discussed activity modification, they should limit or avoid any heavy or repetitive pinching or gripping activities She was fitted for a comfort cool brace to wear with daily activity We can discuss alternative treatment options at a later date. Consider radiographs of the left hand. 3. Left carpal tunnel syndrome, S/P release DOS: ~10/[address] Shipley at [facility] Normal sensation following surgery No complaints today 4. Right small finger DIP joint arthritis History of mucous cyst excision DOS: 10/[address] Shipley at [facility] No recurrence at present Scribed for Ansley Holly MD by Jose Goncalves, medical associate, on 04/05/24 at 11:25 AM, EST. Coding Level of Care Code New Pt Level 4 (80844) Diagnoses Carpal tunnel syndrome of right wrist G56.01 Arthritis of carpometacarpal (CMC) joint of left thumb M18.12 History of carpal tunnel surgery of left wrist Z98.890 Arthritis of finger of right hand M19.041
[2024-04-05 11:14] VITALS: BMI 32.2
== END 2024-04-05 11:46 | disposition home or self-care (01) ==
PROVIDERS: PCP Nurse Practitioner Family; Visit Provider Orthopaedic Surgery
DX: G56.01 Carpal tunnel syndrome, right upper limb (principal); M18.12 Unilateral primary osteoarthritis of first carpometacarpal joint, left hand; Z98.890 Other specified postprocedural states; M19.041 Primary osteoarthritis, right hand
CPT/HCPCS: 99204

== ENCOUNTER → 2024-04-05 10:47 | Outpatient (BNVA) | payer MEDICARE, SELFPAY | PROVIDERS: PCP Nurse Practitioner Family; Visit Provider Orthopaedic Surgery | DX: G56.01 Carpal tunnel syndrome, right upper limb (principal); M18.12 Unilateral primary osteoarthritis of first carpometacarpal joint, left hand; M19.041 Primary osteoarthritis, right hand; Z98.890 Other specified postprocedural states | CPT/HCPCS: 99202 ==

== ENCOUNTER 2024-05-11 09:00 | Day surgery (SDC) | payer MEDICARE, SELFPAY ==
[2024-05-11 09:08] VITALS: BP 137/54; PULSE 79; RESP 16; TEMP 36.7; O2SAT 97; BMI 34.2
--- NOTE | 2024-05-11 09:32 | P.OP_ITS ---
Operative Note Operative Note Date of Service: 05/11/24 Narrative: Preop diagnosis: 1. Right Carpal tunnel syndrome Postop diagnosis: same Procedure: 1. Right Carpal tunnel release Surgeon: Ansley Holly MD Motion Picture Commentator: Gabino CORADO Anesthesia: local block using 1% lidocaine with epinephrine Findings: Thickened transverse carpal ligament. EBL: Less than 5 mL Specimens: None Complications: None Disposition: Brought to recovery room in stable condition Plan: Follow-up for 10-14 days for wound check and suture removal Indications: The patient is 68 years old, with right carpal tunnel syndrome that has been unresponsive to nonoperative management. The risks and benefits of operative treatment including but not limited to risk of damage to blood vessels, nerves, tendons, infection, persistent pain, persistent symptoms, or possible need for additional surgery were discussed with the patient and the patient wishes to proceed with surgery. Procedure: Once consent was obtained a local block was performed using a combination of 1% lidocaine with epinephrine. The patient was then brought back to the operating suite and placed on the operative table in supine position. The right upper extremity was prepped and draped in a standard surgical fashion. Once assured that we had a good block, a 2.0 cm longitudinal incision was made centered over the carpal tunnel. The incision was made through the skin to the subcutaneous tissues using a #15 blade. Dissection was made down to the level of the transverse carpal ligament with care being taken to protect the palmar cutaneous nerve. Once the transverse carpal ligament was clearly visualized, a longitudinal incision was made in the transverse carpal ligament 1st using a #15 blade, then using tenotomy scissors under direct visualization. Care was taken to look for and protect the motor branch of the median nerve when seen in this area. Once satisfied with our carpal tunnel release the wound was copiously irrigated with normal saline and hemostasis was obtained with a brief period of local pressure. The skin edges were reapproximated with some 5.0 nylon suture material and a sterile dressing was applied. The patient appears to have tolerated the procedure well and with no complications. All digits were well vascularized at the conclusion of the case.
--- NOTE | 2024-05-11 09:32 | MHC.SHP ---
Pre-Procedural Eval Section A - 24 Hr Update-Section A only Date of Service: 05/11/24 The patient is an INPATIENT: No Changes since office visit: No Cold of Flu in the past 2 weeks, No New Medical Problems, No Changes in Medication and No Patient answered all questions The patient has been examined within 24 hours of the surgical procedure. The History & Physical has been completed within 30 days and I have reviewed it.: Yes Section B - Complete if H&P > 30 days Chief Complaint: Carpal tunnel syndrome, right upper limb Allergies: Allergies Allergy/AdvReac Type Severity Reaction Status Date / Time adhesive Allergy Severe breaks out Verified 05/11/24 09:07 clindamycin Allergy Severe C dif Verified 05/11/24 09:07 penicillin V Allergy Unknown rash Verified 05/11/24 09:07 oxycodone [OxyContin] AdvReac Unknown Stomach Verified 05/11/24 09:07 Upset sulfa Allergy Unknown rash in Uncoded 05/11/24 09:07 body Plan Diagnosis/Plan: Unchanged I have reviewed the history and physical and performed a pertinent physical examination on my patient. No changes have occurred unless specified. Time Spent With Patient Time: Total time managing care of this patient today ____ minutes.
[2024-05-11 10:20] VITALS: BP 136/71; PULSE 70; O2SAT 98
== END 2024-05-11 10:28 | disposition home or self-care (01) ==
PROVIDERS: PCP Nurse Practitioner Family; Visit Provider Orthopaedic Surgery
PROC: (CPT 64721; principal; 2024-05-11 10:30)
DX: G56.01 Carpal tunnel syndrome, right upper limb (principal); R20.0 Anesthesia of skin; M19.041 Primary osteoarthritis, right hand; M79.641 Pain in right hand; F41.9 Anxiety disorder, unspecified; L23.1 Allergic contact dermatitis due to adhesives; Z88.0 Allergy status to penicillin; Z88.1 Allergy status to other antibiotic agents; Z88.2 Allergy status to sulfonamides; Z88.5 Allergy status to narcotic agent; Z98.890 Other specified postprocedural states
CPT/HCPCS: 64721; J0171; J2003

== ENCOUNTER → 2024-05-11 09:00 | Outpatient (BNV) | payer MEDICARE, SELFPAY | PROVIDERS: PCP Nurse Practitioner Family; Visit Provider Orthopaedic Surgery | DX: G56.01 Carpal tunnel syndrome, right upper limb (principal) | CPT/HCPCS: 64721 ==

== ENCOUNTER 2024-05-24 10:46 | Outpatient (AMB) | payer MEDICARE, SELFPAY ==
--- NOTE | 2024-05-24 10:48 | A.OFFVIS_ITS ---
Intake Visit Reasons: PO RT CTR 05/11/24 AR Intake Note: [birth year]68 year old right hand dominant female presents today for a post operative visit s/p right carpal tunnel release, DOS: 05/11/2024 w/ Dr Holly. Sutures Removed and steris applied. Pateint reports that she is doing well she has some residual numbness and tingling. Allergies adhesive Allergy (Severe, Verified 05/24/24 10:53) breaks out clindamycin Allergy (Severe, Verified 05/24/24 10:53) C dif penicillin V Allergy (Unknown, Verified 05/24/24 10:53) rash oxycodone [OxyContin] Adverse Reaction (Unknown, Verified 05/24/24 10:53) Stomach Upset sulfa Allergy (Unknown, Uncoded 05/24/24 10:53) rash in body HPI HPI PO RT CTR 05/11/24 AR: Details: August 68 year old right hand dominant female presents today for a post operative visit s/p right carpal tunnel release, DOS: 05/11/2024 w/ Dr Holly. Sutures Removed and steris applied. Pateint reports that she is doing well she has some residual numbness and tingling. 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 Review of Systems Const All systems reviewed & are unremarkable except as noted in HPI and below Physical Exam Const General: cooperative, healthy appearing and no acute distress Orientation/consciousness: patient oriented x3 HEENT Head: Yes normocephalic and Yes atraumatic Eyes EOM: EOMs intact bilaterally Resp Effort & Inspection: normal respiratory effort and able to speak in complete sentences Cardio Jugular venous distension: no JVD Skin General skin exam: turgor normal Rashes: no rashes Neuro General: patient oriented x3 Extrem Other: Evaluation of Right Upper Extremity: The patient is alert, oriented, and in no acute distress Neuro: Diminished sensation radial aspect of the right ring finger Normal sensation of the tips of all other digits of the right hand in the office today No thenar or intrinsic wasting Good APB muscle belly firing and good finger cross Vascular: Cap refill brisk ROM: She can make a fist and extend all her digits bilaterally Skin: Well approximated and well healing incision site noted over the volar right wrist General: No Ecchymosis. No Erythema or evidence of infection. Psych Appearance: grossly normal Affect: normal affect Attitude: cooperative Assessment & Plan Assessment & Plan (1) Carpal tunnel syndrome of right wrist: Code(s): G56.01 - Carpal tunnel syndrome, right upper limb Category: Medical Plan 1. Status post right carpal tunnel release DOS 05/11/24 Patient appears to be recovering well postoperatively Patient is educated about the typical recovery course At this time, patient was informed that she will require no acute follow-up with us, as she appears to be recovering very well Patient was amenable to this plan Patient will follow-up as needed with any acute concerns Coding Level of Care Code Global (29395) Diagnoses Carpal tunnel syndrome of right wrist G56.01
--- OUTSIDE RECORDS SUMMARY | 2024-05-24 13:11 | XMS_ITS | Continuity of Care Document ---
Author Organization [facility] Address [address] [place] [address]- Support Name Relationship Address Phone PLASSE, JONATAN [...] Unknown Unava ilable Care Team Providers Care Package Sealer Name Role Phone Min ALMODOVAR, Alyssa Brown Primary Care Physician Encounter [facility] Date(s): 05/03/24 - 05/10/24 [facility] Adult [address] [place] [address]- Encounter Diagnosis Benign essential hypertension(Discharge Diagnosis) - 05/02/24 Hyperlipidemia(Discharge Diagnosis) - 05/02/24 Hypothyroidism(Discharge Diagnosis) - 05/02/24 DM II (diabetes mellitus, type II), controlled(Discharge Diagnosis) - 05/02/24 Acid reflux(Discharge Diagnosis) - 05/02/24 Calcification of aorta(Discharge Diagnosis) - 05/02/24 Fatty liver disease, nonalcoholic(Discharge Diagnosis) - 05/02/24 Obese class I(Discharge Diagnosis) - 05/02/24 EFRAIN (obstructive sleep apnea)(Discharge Diagnosis) - 05/02/24 Anxiety and depression(Discharge Diagnosis) - 05/02/24 Carpal tunnel syndrome, right(Discharge Diagnosis) - 05/03/24 Attending Physician: Alyssa Copeland NP Referring Physician: Gabino Curry MD Encounter Type: Office Visit Allergies, Adverse Reactions, Alerts Substance Criticality Severity Reaction Reaction Severity Status clindamycin Active penicillin rash Active oxyCODONE Hallucinations Activ e sulfADIAZINE rash Active Adhesive Bandage Unable to assess criticality Unknown Active [place] itchy Active Nuts itchy Active Tomatoes itch Active Rice itchy Active Watermelon epi pen Banana Active Immunizations Given and Recorded Vaccine Date Status Refusal Reason tetanus/diphtheria/pertussis, acel(Tdap) 12/14/23 Recorded SARS-CoV-2(COVID-19)mRNA-LNP vac([id number]) 12/08/23 Recorded influenza virus vaccine, inactivated 12/02/23 [...] pneumococcal 20-valent conjugate vaccine 3 11/04/22 Given [id number] bivalent booster vax 08/11/22 Recorded tetanus-diphtheria toxoids (Td) 04/23/22 Given SARS-CoV-2 mRNA ([id number]) vax 4 12/06/21 Recorded zoster vaccine, inactivated 10/19/20 Recorded zoster vaccine, inactivated 08/16/20 Recorded Flu Vaccine 12/22/19 Recorded Influenza Virus Vaccine (oldterm) 12/20/19 Recorde d Zoster Vaccine Live 10/01/15 Recorded Tetanus Toxoid 12/06/12 Recorded Mumps Virus Vaccine 07/17/11 Recorded Varicella Virus Vaccine 01/04/97 Recorded Rubella Virus Vaccine 01/04/97 Recorded 1Location History: [facility] 2Result Comment: [facility] 3Result Comment: [id number] 4Result Comment: Moderna Covid Bivalent Booster [facility] Medications amLODIPine 5 mg oral tablet 1 tablet, By Mouth, Daily, # 90 tablet, 1 Refills, Maintenance, 04/01/24 1:14:00 PM EST, [id number], 158, cm, 11/06/23 7:53:00 EDT, Height, 98.9, kg, 08/22/22 10:20:00 EDT, Dry Weight Start Date: 04/01/24 Status: Ordered Quantity: 90.0 Unit: tablet Repeat number: 1 atorvastatin 40 mg oral tablet 1 tablet, By Mouth, Daily, # 90 tablet, 1 Refills, Maintenance, 11/06/23 8:24:00 AM EDT, [facility] #[id number], 158, cm, 11/06/23 7:53:00 EDT, Height, 98.9, [...] Soft Stop, 11/04/22 9:21:00 AM EDT, [facility]/pharmacy #[id number], 158, cm, 11/04/22 8:53:00EDT, Height, 98.9, kg, 08/22/22 10:20:00 EDT, Dry Weight Start Date: 11/04/22 Status: Ordered Quantity: 2.0 Unit: each Repeat number: 2 levothyroxine 0.025 mg oral tablet 1 tablet, By Mouth, Daily, # 90 tablet, 1 Refills, Maintenance, 11/06/23 8:24:00 AM EDT, [facility] #[id number], 158, cm, 11/06/23 7:53:00 EDT, Height, 98.9, kg, 08/22/22 10:20:00 EDT, Dry Weight Start Date: 11/06/23 Status: Ordered Quantity: 90.0 Unit: tablet Repeat number: 2 LORazepam 1 mg oral tablet 1 tablet = 1 mg, By Mouth, Daily at bedtime, Try to wean off med, # 30 tablet, 1 Refills, Maintenance, 02/02/18 9:00:00 PM EST, [facility] #[id number], 05/18/24, 158, cm, 05/03/24 8:23:00 EST, Height, 98.9, kg, 08/22/22 10:20:00 EDT, Dry Weight Start Date: 02/02/18 Status: Ordered Quantity: 30.0 Unit: tablet Repeat number: 2 Mounjaro 2.5 mg/0.5 mL subcutaneous solution = 2.5 mg, Subcutaneous Injection, Every week, Replaces ozempic, # 2 mL, 0 Refills, Maintenance, 05/03/24 8:41:00 AM EST, Solution, [facility] #[id number], 158, cm, 05/03/24 8:23:00 EST, Height, 98.9, kg, 08/22/22 10:20:00 EDT, Dry Weight Start Date: 05/03/24 Status: Ordered Quantity: 2.0 Unit: mL Repeat number: 1 Multivitamin 1 tablet, By Mouth, Daily, 0 Refills, Maintenance, 12/24/10 3:44:07 PM EDT Start Date: 12/24/10 Status: Ordered Repeat number: 1 omeprazole 20 mg oral enteric coated capsule 1 capsule, By Mouth, 2 times a day, # 180 capsule, 1 Refills, Maintenance, 01/04/24 11:50:00 AM EDT, [facility] #[id number], 158, cm, 11/06/23 7:53:00 EDT, Height, 98.9, kg, 08/22/22 10:20:00 EDT, Dry Weight Start Date: 01/04/24 Status: Ordered Quantity: 180.0 Unit: capsule Repeat number: 2 QUEtiapine 25 mg oral tablet See Instructions, Take 1-2 tablets By Mouth Daily at bedtime in place of lorazepam after surgery, #30 tablet, Refills 0, Tot. Refills 0, Maintenance, 05/03/24 9:00:00 AM EST, Instructions Replace Required Details, Route to Pharmacy Electronically, [facility] #[id number], 158, cm, 05/03/24 8:23:00 EST, Height, 98.9, kg, 08/22/22 10:20:00 EDT, Dry Weight Start Date: 05/03/24 Status: Ordered Quantity: 30.0 Unit: tablet Repeat number: 1 tacrolimus 0.1% topical ointment 0 Refills, Maintenance, [...] EFRAIN (obstructive sleep apnea) 1 Confirmed Active Tubular adenoma 2 Confirmed Active DM II (diabetes mellitus, type II), controlled Confirmed Active 1untreated 2repeat colonoscopy due 06/2020 Diagnosis Diagnosis Type Effective Dates Health Status Clinical Service Informant Benign essential hypertension Discharge Diagnosis 05/02/24 Hyperlipidemia Discharge Diagnosis 05/02/24 Hypothyroidism Discharge Diagnosis 05/02/24 DM II (diabetes mellitus, type II), controlled Discharge Diagnosis 05/02/24 Acid reflux Discharge Diagnosis 05/02/24 Calcification of aorta Discharge Diagnosis 05/02/24 Anxiety and depression Discharge Diagnosis 05/02/24 Fatty liver disease, nonalcoholic Discharge Diagnosis 05/02/24 Obese class I Discharge Diagnosis 05/02/24 EFRAIN (obstructive sleep apnea) Discharge Diagnosis 05/02/24 Carpal tunnel syndrome, right Discharge Diagnosis 05/03/24 Vital Signs Most recent to oldest [Reference Range]: 1 Height 158.0 cm (05/03/24 8:23 AM) Weight 85 kg (05/03/24 8:23 AM) Oxygen Saturation [94-100 %] 99 % (05/03/24 8:23 AM) Pulse Rate [55-90 bpm] 71 bpm (05/03/24 8:23 AM) Body Mass Index [18.5-24.99 kg/m2] 34.05 kg/m2 *>HHI* (05/03/24 8:23 AM) Blood Pressure [90-138/55-84 mm Hg] 116/ 73mm Hg (05/03/24 8:23 AM) Mode of Delivery (Oxygen) Room air (05/03/24 8:23 AM) Blood pressure sites Arm, right (05/03/24 8:23 AM) Social History Social History Type Response Smoking Status Never smoker entered on: 05/30/14 Sex Female Sex Representation Female (finding) Patient Care team information Care Team Personnel Name: Alyssa Copeland NP Position: S PCO Associate Professional Member Role: PCP Address: [address] [place] [address]- Telecom: Care Team Related Persons Name: JURGEN DOAN Name: JONATAN PINK Name: RODNEY HORTON Insurance Providers Guarantor name: AUGUST [facility] Plan Information #: 2 Payer: MEDEX Member Number: [id number] Policy Number: VERA Group Number: NA Health Plan Information #: 1 Payer: MEDICARE PART B OUTPT Member Number: [id number] Policy Number: VERA Group Number: NA
--- OUTSIDE RECORDS SUMMARY | 2024-05-24 13:11 | XMS_ITS | Clinical Summary ---
Author Organization [facility] Address [address] [place] [address] Care Team Providers Care Product Builder Name Role Phone Pcp, No Primary Care Provider Unavailabl e Allergies Active Allergy Reactions Criticality Noted Date Comments Doxycycline Other (See Comments) 11/10/2023 Patient reports perioral dermatitis Penicillins Rash/Dermatitis Low 11/10/2023 Oxycodone-Acetaminophe n Delirium/Confusion/P sychosis Low 11/10/2023 Sulfa Antibiotics Rash/Dermatitis Low 11/10/2023 Social History Tobacco Use Types Packs/Day Years Used Date Smoking Tobacco: Never Assessed Sex and Gender Information Value Date Recorded Sex Assigned at Not on file Gender Identity Not on file Sexual Orientation Not on file Plan of Treatment Health Maintenance Due Date Last Done Comments Hepatitis C Virus Screening 1955 DTaP/Tdap/Td Vaccines (1 - Tdap) 09/14/1974 Mammogram 1995 Colonoscopy 09/14/2000 Pneumococcal Vaccines 50+ (1 of 1 - PCV) 09/14/2005 Zoster (Shingles) Vaccine (1 of 2) 09/14/2005 DXA Bone Density (Females,Ages 65 and older) 09/14/2020 Influenza Vaccine 10/22/2023 11/22/2022, , 12/14/2020, Additional history exists COVID-19 Vaccine (2023- season) 2023 12/13/2022, 12/06/2021, 06/20/2021, Additional history exists RSV Vaccine 60 years and older and Patients (1 - 1-dose 75+ series) 09/14/2030 Hepatitis B Vaccines Aged Out No long er eligible based on patient's age to complete this topic Care Teams Product Builder Relationship Specialty Start Date End Date Pcp, No PCP - General General Medicine 11/10/23
== END 2024-05-24 11:03 | disposition home or self-care (01) ==
PROVIDERS: PCP Nurse Practitioner Family
DX: G56.01 Carpal tunnel syndrome, right upper limb (principal)
CPT/HCPCS: 99024

== ENCOUNTER → 2024-05-24 10:46 | Outpatient (BNVA) | payer MEDICARE, SELFPAY | PROVIDERS: PCP Nurse Practitioner Family | DX: Z47.89 Encounter for other orthopedic aftercare (principal); Z98.890 Other specified postprocedural states | CPT/HCPCS: 99212 ==

== ENCOUNTER 2024-11-16 08:43 | Outpatient (AMB) | payer MEDICARE, SELFPAY ==
--- OUTSIDE RECORDS SUMMARY | 2024-11-13 15:00 | XMS_ITS | Continuity of Care Document ---
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(Final) - Discharge Disposition: A-D/C Home Attending Physician: Alyssa Copeland NP Admitting Physician: Alyssa Copeland NP Referring Physician: Gallito Painter Encounter Type: Disch Recurring OP Allergies, Adverse Reactions, Alerts Substance Criticality Severity Reaction Reaction Severity Status clindamycin Active penicillin rash Active oxyCODONE Hallucinations Activ e sulfADIAZINE rash Active Adhesive Bandage Unable to assess criticality Unknown Active [place] itchy Active Nuts itchy Active Tomatoes itch Active Rice itchy Active Watermelon epi pen Banana Active Immunizations Given and Recorded Vaccine Date Status Refusal Reason SARS-CoV-2(COVID-19)mRNA-LNP vac([id number]) 06/25/24 Recorded SARS-CoV-2(COVID-19)mRNA-LNP vac([id number]) 12/08/23 Recorded tetanus/diphtheria/pertussis, acel(Tdap) 12/14/23 Recorded influenza virus vaccine, inactivated 12/02/23 Zack [...] pneumococcal 20-valent conjugate vaccine 3 11/04/22 Given [id number] bivalent booster vax 08/11/22 Recorded tetanus-diphtheria toxoids (Td) 04/23/22 Given SARS-CoV-2 mRNA ([id number]) vax 4 12/06/21 Recorded zoster vaccine, inactivated 10/19/20 Recorded zoster vaccine, inactivated 08/16/20 Recorded Flu Vaccine 12/22/19 Recorded Influenza Virus Vaccine (oldterm) 12/20/19 Recorde d Zoster Vaccine Live 10/01/15 Recorded Tetanus Toxoid 12/06/12 Recorded Mumps Virus Vaccine 07/17/11 Recorded Varicella Virus Vaccine 01/04/97 Recorded Rubella Virus Vaccine 01/04/97 Recorded 1Location History: [facility] 2Result Comment: [facility] 3Result Comment: [id number] 4Result Comment: Moderna Covid Bivalent Booster [facility] Medications amLODIPine 5 mg oral tablet 1 tablet, By Mouth, Daily, # 90 tablet, 1 Refills, Maintenance, 09/21/24 12:51:00 PM EDT, [id number], 158, cm, 06/08/24 12:16:00 EDT, Height Start Date: 09/21/24 Status: Ordered Quantity: 90.0 Unit: tablet Repeat number: 1 atorvastatin 40 mg oral tablet 1 tablet, By Mouth, Daily, # 90 tablet, 1 Refills, Maintenance, 09/21/24 9:50:00 AM EDT, [facility] #[id number], 158, cm, 06/08/24 12:16:00 EDT, Height Start Date: 09/21/24 Status: Ordered Quantity: 90.0 Unit: tablet Repeat number: 2 Calcium 600 +D By Mouth, 2 times a day, 0 Refills, Maintenance, 09/11/10 11:21:27 AM EDT Start Date: 09/11/10 Status: Ordered Repeat number: 1 celecoxib 200 mg oral capsule TAKE 1 CAPSULE BY MOUTH EVERY DAY DIRECTED Start Date: 11/07/24 Status: Ordered Repeat number: 1 Clobetasol (Eqv-Temovate) [...] Refills, Soft Stop, 11/04/22 9:21:00 AM EDT, [facility]/pharmacy #[id number], 158, cm, 11/04/22 8:53:00EDT, Height, 98.9, kg, 08/22/22 10:20:00 EDT, Dry Weight Start Date: 11/04/22 Status: Ordered Quantity: 2.0 Unit: each Repeat number: 2 fluocinolone 0.025% topical cream 1 application, Topically, 4 times a day, # 15 Gm, 0 Refills, Maintenance, 11/07/24 8:39:00 AM EDT, Cream, Partial fill upon patient request if the prescription is for a schedule II opioid drug. Start Date: 11/07/24 Status: Ordered Quantity: 15.0 Unit: g Repeat number: 1 levothyroxine 0.025 mg oral tablet 1 tablet, By Mouth, Daily, # 90 tablet, 1 Refills, Maintenance, 06/02/24 12:05:00 PM EDT, [facility] #[id number], 158, cm, 05/03/24 8:23:00 EST, Height, 98.9, kg, 08/22/22 10:20:00 EDT, Dry Weight Start Date: 06/02/24 Status: Ordered Quantity: 90.0 Unit: tablet Repeat number: 2 LORazepam 1 mg oral tablet TAKE 1 TABLET BY MOUTH DAILY AT BEDTIME Start Date: 06/08/24 Status: Ordered Repeat number: 1 Mounjaro 10 mg/0.5 mL subcutaneous solution = 10 mg, Subcutaneous Injection, Every week, for 30 days, rotate injection sites, # 2 mL, 2 Refills, Acute 12/12/24 12:54:00 PM EDT, 09/13/24 12:54:00 PM EDT, Solution, [facility] #[id number], 158, cm, 06/08/24 12:16:00 EDT, Height Start Date: 09/13/24 Stop Date: 12/12/24 Status: Ordered Quantity: 2.0 Unit: mL Repeat number: 3 Multivitamin 1 tablet, By Mouth, Daily, 0 Refills, Maintenance, 12/24/10 3:44:07 PM EDT Start Date: 12/24/10 Status: Ordered Repeat number: 1 omeprazole 20 mg oral enteric coated capsule 1 capsule, By Mouth, 2 times a day, # 180 capsule, 1 Refills, Maintenance, 06/02/24 12:04:00 PM EDT,[facility] #[id number], 158, cm, 05/03/24 8:23:00 EST, Height, 98.9, kg, 08/22/22 10:20:00 EDT, Dry Weight Start Date: 06/02/24 Status: Ordered Quantity: 180.0 Unit: capsule Repeat number: 2 Probiotic Formula By Mouth, Daily, 0 Refills, Maintenance, 11/07/24 8:39:00 AM EDT, Partial fill upon patient request if the prescription is for a schedule II opioid drug. Start Date: 11/07/24 Status: Ordered Repeat number: 1 Stool softner Stool softner, Refills 0, Maintenance, 3 in AM and 3PM, 11/07/24 8:40:00 AM EDT, Supply Start Date: 11/07/24 Status: Ordered Repeat number: 1 tacrolimus 0.1% topical ointment 0 Refills, Maintenance, 02/15/20 12:19:00 AM EST, Partial fill upon patient request Start Date: 02/15/20 Status: Ordered Repeat number: 1 traZODone 100 mg oral tablet 0.5, By Mouth, Daily at bedtime, Refills 0, Maintenance, 06/08/24 12:21:00 PM EDT, Partial fill uponpatient request if the prescription is for a schedule II opioid drug. Start Date: 06/08/24 Status: Ordered Repeat number: 1 Zolmitriptan By Mouth, Daily, 0 Refills, Maintenance, 11/07/24 8:39:00 AM EDT, Partial fill upon patient request if the prescription is for a schedule II opioid drug. Start Date: 11/07/24 Status: Ordered Repeat number: 1 Problem List Condition Confirmation Course Effective Dates Status H ealth Status Informant Benign essential hypertension Confirmed Active Osteoarthritis of both feet Confirmed Active Carpal tunnel syndrome, bilateral Confirmed Active Cervical disc disease Confirmed Active Calcification of aorta Confirmed Active Eczema Confirmed Active Acid reflux Confirmed Active Hammertoe of right foot Confirmed Active History of removal of laparoscopic gastric banding device Confirmed Active Hyperlipidemia Confirmed Active Hypothyroidism Confirmed Active NSAID long-term use Confirmed Active Mediastinal mass Confirmed Active Migraine Confirmed Active Anxiety and depression Confirmed Active Fatty liver disease, nonalcoholic Confirmed Active EFRAIN (obstructive sleep apnea) 1 Confirmed Active Severe obesity (BMI 35.0-39.9) with comorbidity Confirmed Active Tubular adenoma 2 Confirmed Active DM II (diabetes mellitus, type II), controlled Confirmed Active 1untreated 2repeat colonoscopy due 06/2020 Social History Social History Type Response Smoking Status Never smoker entered on: 05/30/14 Sex Female Sex Representation Female (finding) Patient Care team information Care Team Personnel Name: Alyssa Copeland NP Position: S PCO Associate Professional Member Role: PCP Address: [address] [place] [address] Telecom: Care Team Related Persons Name: JURGEN DOAN Name: JONATAN PINK Name: RODNEY HROTON Insurance Providers Guarantor name: AUGUST [facility] Health Plan Information #: 1 Payer: MEDICARE B Payer Identifier: VERA Member Number: [id number] Group Number: Subscriber Identifier: [id number] Relationship to Subscriber: self Coverage Type: NA Coverage Verification Date: NA Telecom: NA Address: [facility] Information #: 2 Payer: MEDEX SECONDARY ONLY Payer Identifier: NA Member Number: [id number] Group Number: Subscriber Identifier: [id number] Relationship to Subscriber: self Coverage Type: Medicare Other Coverage Verification Date: NA Telecom: Address:
--- OUTSIDE RECORDS SUMMARY | 2024-11-14 23:59 | XMS_ITS | Continuity of Care Document ---
Author Organization [facility] Address [address] [place] [address]- Support Name Relationship Address Phone PLASSE, JONATAN Personal Relationship Unknown Unava ilable PLASSE, JONATAN Personal Relationship Unknown Unava ilable PLASSE, JONATAN Personal Relationship Unknown Unava ilable PLASSE, JONATAN Personal Relationship Unknown Unava ilable PLASSE, JONATAN Personal Relationship Unknown Unava ilable PLASSE, JONATAN Personal Relationship Unknown Unava ilable PLASSE, JONAATN Personal Relationship Unknown Unava ilable PLASSE, JONATAN [...] Unknown Unava ilable Care Team Providers Care Rehab Spec Name Role Phone Min ALMODOVAR, Alyssa Brown Primary Care Physician Encounter [facility] Date(s): 11/07/24 - 11/14/24 [facility] [address], [place] [address] Encounter Diagnosis Medicare annual wellness visit, subsequent(Discharge Diagnosis) - 11/06/24 Benign essential hypertension(Discharge Diagnosis) - 11/06/24 DM II (diabetes mellitus, type II), controlled(Discharge Diagnosis) - 11/06/24 Hyperlipidemia(Discharge Diagnosis) - 11/06/24 Hypothyroidism(Discharge Diagnosis) - 11/06/24 Anxiety and depression(Discharge Diagnosis) - 11/06/24 Acid reflux(Discharge Diagnosis) - 11/06/24 Severe obesity (BMI 35.0-39.9) with comorbidity(Discharge Diagnosis) - 11/06/24 EFRAIN (obstructive sleep apnea)(Discharge Diagnosis) - 11/06/24 Migraine(Discharge Diagnosis) - 11/06/24 Tubular adenoma(Discharge Diagnosis) - 11/06/24 Eczema(Discharge Diagnosis) - 11/06/24 Fatty liver disease, nonalcoholic(Discharge Diagnosis) - 11/06/24 Calcification of aorta(Discharge Diagnosis) - 11/06/24 NSAID long-term use(Discharge Diagnosis) - 11/07/24 Osteoarthritis of both feet(Discharge Diagnosis) - 11/07/24 Attending Physician: Alyssa Copeland NP Referring Physician: Gabino Curry MD Encounter Type: Office Visit Allergies, Adverse Reactions, Alerts Substance Criticality Severity Reaction Reaction Severity Status clindamycin Active penicillin rash Active oxyCODONE Hallucinations Activ e sulfADIAZINE rash Active Adhesive Bandage Unable to assess criticality Unknown Active Havana itchy Active Nuts itchy Active Tomatoes itch Active Rice itchy Active Watermelon epi pen Banana Active Immunizations Given and Recorded Vaccine Date Status Refusal Reason SARS-CoV-2(COVID-19)mRNA-LNP vac([id number]) 06/25/24 Recorded SARS-CoV-2(COVID-19)mRNA-LNP vac([id number]) 12/08/23 Recorded tetanus/diphtheria/pertussis, acel(Tdap) 12/14/23 Recorded influenza [...] pneumococcal 20-valent conjugate vaccine 3 11/04/22 Given [id number] bivalent booster vax 08/11/22 Recorded tetanus-diphtheria toxoids (Td) 04/23/22 Given SARS-CoV-2 mRNA ([id number]) vax 4 12/06/21 Recorded zoster vaccine, inactivated 10/19/20 Recorded zoster vaccine, inactivated 08/16/20 Recorded Flu Vaccine 12/22/19 Recorded Influenza Virus Vaccine (oldterm) 12/20/19 Recorde d Zoster Vaccine Live 10/01/15 Recorded Tetanus Toxoid 12/06/12 Recorded Mumps Virus Vaccine 07/17/11 Recorded Varicella Virus Vaccine 01/04/97 Recorded Rubella Virus Vaccine 01/04/97 Recorded 1Location History: [facility] employer 2Result Comment: [facility]ber [facility] 3Result Comment: [id number] 4Result Comment: Moderna Covid Bivalent Booster [facility] Pharmacy Medications amLODIPine 5 mg oral tablet 1 tablet, By Mouth, Daily, # 90 tablet, 1 Refills, Maintenance, 09/21/24 12:51:00 PM EDT, [id number], 158, cm, 06/08/24 12:16:00 EDT, Height Start Date: 09/21/24 Status: Ordered Quantity: 90.0 Unit: tablet Repeat number: 1 atorvastatin 40 mg oral tablet 1 tablet, By Mouth, Daily, # 90 tablet, 1 Refills, Maintenance, 09/21/24 9:50:00 AM EDT, [facility] #[id number], 158, cm, 06/08/24 12:16:00 EDT, Height Start [...] Refills, Soft Stop, 11/04/22 9:21:00 AM EDT, [facility]/pharmacy #[id number], 158, cm, 11/04/22 8:53:00EDT, [...] 1 Refills, Maintenance, 06/02/24 12:05:00 PM EDT, [facility] #[id number], 158, cm, 05/03/24 8:23:00 EST, Height, 98.9, [...] PM EDT, 09/13/24 12:54:00 PM EDT, Solution, [facility][id number], 158, cm, 06/08/24 12:16:00 EDT, Height Start [...] capsule, 1 Refills, Maintenance, 06/02/24 12:04:00 PM EDT,[facility] #[id number], 158, cm, 05/03/24 8:23:00 EST, Height, 98.9, [...] Effective Dates Health Status Clinical Service Informant Medicare annual wellness visit, subsequent Discharge Diagnosis 11/06/24 Benign essential hypertension Discharge Diagnosis 11/06/24 DM II (diabetes mellitus, type II), controlled Discharge Diagnosis 11/06/24 Hyperlipidemia Discharge Diagnosis 11/06/24 Hypothyroidism Discharge Diagnosis 11/06/24 Anxiety and depression Discharge Diagnosis 11/06/24 Acid reflux Discharge Diagnosis 11/06/24 Severe obesity (BMI 35.0-39.9) with comorbidity Discharge Diagnosis 11/06/24 EFRAIN (obstructive sleep apnea) Discharge Diagnosis 11/06/24 Migraine Discharge Diagnosis 11/06/24 Tubular adenoma Discharge Diagnosis 11/06/24 Eczema Discharge Diagnosis 11/06/24 Fatty liver disease, nonalcoholic Discharge Diagnosis 11/06/24 Calcification of aorta Discharge Diagnosis 11/06/24 NSAID long-term use Discharge Diagnosis 11/07/24 Osteoarthritis of both feet Discharge Diagnosis 11/07/24 Social History Social History Type Response Smoking Status Never smoker entered on: 05/30/14 Sex Female Sex Representation Female (finding) Note * Olivia Bustillo: PERFORM Event Display: Patient Education/Instruction Authored Date: [id number] Ambulatory Adult Visit Summary [facility] [address] [place] [address] Name: LEIDA PINK : 1955?? Visit: 11/07/2024 08:21?? Ambulatory Visit Instructions ?? Your Care Team Primary Care Provider Alyssa Copeland NP? This Visit Provider Alyssa Copeland NP. Your Diagnosis Medicare annual wellness visit, subsequent Benign essential hypertension DM II (diabetes mellitus, type II), controlled Hyperlipidemia Hypothyroidism Anxiety and depression Acid reflux Severe obesity (BMI 35.0-39.9) with comorbidity EFRAIN (obstructive sleep apnea) Migraine Tubular adenoma Eczema Fatty liver disease, nonalcoholic Calcification of aorta NSAID long-term use Osteoarthritis of both feet Vitals Signs Pulse Rate: 68 bpm Height: 154.2 cm Systolic Blood Pressure:??86 mm Hg??Low Weight: 84 kg Diastolic Blood Pressure: 57 mm Hg Body Mass Index:??35.33 kg/m2??Critical Oxygen Saturation: 96 % Body surface area: 1.9 What to do next Follow-Up Appointments Follow Up with??Alyssa Copeland NP When:??In 6 months Where: ?? Future Orders MM Digital Mammo Screening, Routine, Reason for Exam: Screening, Conditional Orders: MM Diag/US Breast/Guided Asp/Breast Bx, Patient Does Not Need Assistance, Once, *Est. 11/07/24 Hemoglobin A1C (Monitoring) - Routine, Once, 11/07/24 9:12:00 EDT, Order for Today, [facility], Blood?? Microalbumin Urine - Routine, Once, 11/07/24 9:12:00 EDT, Order for Today, [facility], Urine?? Lipid Panel - Routine, Once, 11/07/24 9:13:00 EDT, Order for Today, [facility], Blood?? TSH Rfx on Abnormal to Free T4 - Routine, Once, 11/07/24 9:13:00 EDT, Order for Today, [facility], Blood?? Comprehensive Metabolic Panel - Routine, Once, 11/07/24 9:13:00 EDT, Order for Today, [facility], Blood?? CBC - Routine, Once, 08/18/25 9:13:00 EDT, Order for Today, [facility], Blood?? Medications The list below reflects the information in our records and provided by you today along with any changes made during this visit. Please continue your medications until treatment is completed or stopped by your provider. If this is different from the information you have or there are other questions,please contact the prescribing provider. What How Much When Instructions Unchanged Amlodipine (amLODIPine 5 mg oral tablet) 1 tab(s) Oral Daily Unchanged Atorvastatin (atorvastatin 40 mg oral tablet) 1 tab(s) Oral Daily Unchanged bifidobacterium-lactobacillus (Probiotic Formula) Oral Daily Unchanged Calcium And Vitamin D Combination (Calcium 600 +D) Oral Twice a day Unchanged Celecoxib (celecoxib 200 mg oral capsule) TAKE 1 CAPSULE BY MOUTH EVERY DAY DIRECTED ?? Unchanged Clobetasol Topical (Clobetasol (Eqv-Temovate) 0.05% topical cream) Unchanged Diclofenac Topical (diclofenac 1% topical gel) Unchanged dupilumab (Dupixent Pre-filled Pen 300 mg/ 2 mL subcutaneous solution) 300 Milligram Subcutaneous Infusion Once Unchanged Durable Medical Equipment (CPAP Equipment) See instructions dx: EFRAIN mask,tubing,filers,headgear, chinstrap, waterchamber ?? Unchanged EPINEPHrine (EpiPen 2-Max 0.3 mg injectable kit) 0.3 Milligram Intramuscular Once may repeat if necessary- seek emergency medical attention if used ?? Unchanged Fluocinolone Topical (fluocinolone 0.025% topical cream) 1 rita Topically 4 times a day Unchanged Levothyroxine (levothyroxine 0.025 mg oral tablet) 1 tab(s) Oral Daily Unchanged Lorazepam (LORazepam 1 mg oral tablet) TAKE 1 TABLET BY MOUTH DAILY AT BEDTIME ?? Unchanged Miscellaneous Rx (Stool softner) 3 in AM and 3PM ?? Unchanged Multivitamin 1 tab(s) Oral Daily Unchanged Omeprazole (omeprazole 20 mg oral enteric coated capsule) 1 capsule Oral Twice a day Unchanged Tacrolimus Topical (tacrolimus 0.1% topical ointment) Unchanged tirzepatide (Mounjaro 10 mg/ 0.5 mL subcutaneous solution) 10 Milligram Subcutaneous Injection Every week Duration: 30 Days rotate injection sites ?? Unchanged Trazodone (traZODone 100 mg oral tablet) 0.5 Oral Daily at Bedtime Unchanged Zolmitriptan Oral Daily Test Performed Below is a partial list of the tests performed during your Visit. You may have had other tests and procedures not included in this list. Please discuss all test results with your provider. CBC?-- Results Pending -- Comprehensive Metabolic Panel?-- Results Pending -- Hemoglobin A1C (Monitoring)?-- Results Pending -- Lipid Panel?-- Results Pending -- Microalbumin Urine?-- Results Pending -- POC HBA1C ([facility]) TSH Rfx on Abnormal to Free T4?-- Results Pending -- Lab Test Results Below is a partial list of the most recent Laboratory test results done during your Visit. You may have had other tests and procedures not included in this list. Please discuss all test results with your provider. Test Name Test Result Date/Time POC HBA1C ([facility]) 5.4 % 11/07/2024 08:46 EDT Medications and Immunizations Administered Medications Given During Visit No medications given during this visit.?? Allergies (NKA means No Known Allergies) Adhesive Bandage Havana??(itchy) Nuts??(itchy) Rice??(itchy) Tomatoes??(itch) Watermelon??(epi pen, Banana) clindamycin oxyCODONE??(Hallucinations) penicillin??(rash) sulfADIAZINE??(rash) Education Materials Below is the list of Educational Leaflet Providered with your Visit summary. [employer] Patient Education - Health Screening Guidelines, Women Ages 65 and Older?? Common Emergency Awareness Tips IS IT A STROKE? Act FAST and Check for these signs: FACE Does the face look uneven? ARM Does one arm drift down? SPEECH Does their speech sound strange? TIME Call at any sign of stroke ?? Heart Attack Signs Chest discomfort: Most heart attacks involve discomfort in the center of the chest and lasts more than a few minutes, or goes away and comes back. It can feel like uncomfortable pressure, squeezing, fullness or pain. Discomfort in upper body: Symptoms can include pain or discomfort in one or both arms, back, neck, jaw or stomach. Shortness of breath: With or without discomfort. Other signs: Breaking out in a cold sweat, nausea, or lightheaded. Remember, MINUTES DO MATTER. If you experience any of these heart attack warning signs, call to get immediate medical attention! ?? Smoking can increase your chances of developing chronic health problems and can cause harmful effects to other family members in your house. If you smoke, you are strongly encouraged to quit. Please call [facility] at [phone] or [phone] ([phone]) or log in to [email or web address] for referrals to smoking cessation programs. ?? The National Suicide Prevention Hotline is available 13/10 if you or someone you know needs to find a reason to keep living. By calling 8-259-023-CivilisedMoney (4289) you'll be connected to a skilled, trained counselor at a crisis center in your area. [facility] You can view and manage your care through the patient portal or by using a health care rita of your choosing. [employer] is a website that allows you to securely view your medical information including your hospital discharge summary, office visit summaries, medications and follow-up visits. You can also request appointments, renew medications, and request access to your medical information using a health care rita of your choosing, or just ask a question. You can enroll at [email or web address] or register during your next office visit. [facility], in keeping with [facility] guidance, no longer requires face masks for staff, patientsor visitors in most situations. Similiar to time spent indoors at other locations, there is the chance that you were exposed to repiratory viruses during your time with us (such as flu or COVID-19). If you develop symptoms concerning for a viral respiratory infection, please seek testing (and treatment if indicated) from your medical provider or home test kit. ?? Disclaimer: The information provided is of a general nature and is intended to be used in conjunction with the recommendations and advice of your health care practitioner. Every effort has been made to ensure that the information provided is accurate and complete at the time it is provided to you however, as your needs change, or, as new information becomes available, different or additional instructions may be required. ?? If you have questions, please consult with your primary care provider or pharmacist, as appropriate. This information is not intended to serve as substitution for assessment and evaluation by a qualified health care provider. If you do not have a primary care provider, you may find a [facility] provider by calling [facility] at [phone]. * Min ALMODOVAR, Alyssa Brown: PERFORM Event Display: Patient Education Leaflets Authored Date: [id number] Health Screening Guidelines, Women Ages 65 and Older ?? [address] Health Screening Guidelines, Women Ages 65 and Older Screening tests and health counseling are a singh part of managing your health. A screening test is done to find disorders or diseases in people who don't have any symptoms. Screening tests are not used to diagnose. They are used to find out if more testing is needed. The goal may be to find a disease early so it can be treated with more success. Or the goal may be to find a disease early so you can make lifestyle changes. You may need regular checkups to help reduce your risk of disease. Below are guidelines for women ages 65 and older. Talk with your healthcare provider. Based on yourhealth history and risk factors, your provider may change the screening advice. Make sure you???re up-to-date on what you need. Screening Who needs it How often Type 2 diabetes or prediabetes Women in this age group up to age 70 who are overweight or have obesity Talk with your healthcare provider about how often they recommend screening. Type 2 diabetes All women with prediabetes Every 1 to 2 years Unhealthy alcohol use All women in this age group At routine exams Blood pressure All women in this age group Once a year if your blood pressure is normal. Normal blood pressure is less than 120/80 mm Hg. If your blood pressure is higher than this, follow the advice of your healthcare provider. Breast cancer All women of average risk. Expert groups vary on their advice. Talk with your provider about your specific situation. A mammogram should be done every 1 or 2 years. Talk with your provider about your risk factors. Askhow often you need the test. Ask what age you can stop. The U.S. Preventive Services Task Force advises a mammogram every 2 years through age 74. The [employer] advises screening every 1to 2 years for women 55 and older. They advise screening to continue for as long as a woman is healthy and is expected to live 10 more years or longer. All women should know how their breasts normally look and feel. They should know the benefits and risks of breast cancer screening with mammograms. Cervical cancer Only women who have not been screened regularly or have had abnormal screening results before age 65 Talk with your healthcare provider if screening is needed. Chlamydia Women at higher risk for infection At routine exams. Talk with your healthcare provider. Colorectal cancer All women at average risk in this age group through age 75. For women ages 76 to 85, ask your healthcare provider if you need to keep screening. For women older than 85, screening is not advised Talk with your healthcare provider about which test below is right for you: ??? Colonoscopy every 10 years ??? Flexible sigmoidoscopy every 5 years (or every 10 years with yearly fecal immunochemical test (FIT) stool test) ??? CT colonography (virtual colonoscopy) every 5 years ??? Yearly fecal occult blood test ??? Yearly FIT ??? Stool DNA test every 3 years If you have a test that is not a colonoscopy and have an abnormal test result, you will need a colonoscopy. You may need to be screened more or less often. This is based on personal or family health history.Talk with your healthcare provider. Depression All women in this age group At routine exams Gonorrhea Sexually active women at higher risk for infection At yearly routine exams. Talk with your healthcare provider. Hepatitis C Test 1 time for women through age 79. At routine exams High cholesterol or triglycerides All women in this age group who are at risk for coronary artery disease Every year. Talk with your healthcare provider about your risk. HIV Women at higher risk for infection At routine exams. Talk with your healthcare provider. Lung cancer Women ages 50 to 80 who are in fairly good health, are at higher risk for lung cancer, and who: ??? Smoke or have quit smoking and ??? Have a 20-pack per year smoking history (1 pack a day for 20years or 2 packs a day for 10 years) Expert groups vary in their advice. Talk with your provider. Yearly lung cancer screening with a low dose CT scan (LDCT). Talk with your healthcare provider about your risk factors. Obesity All women in this age group At yearly routine exams Osteoporosis All women in this age group Routinely done every 2 years. Repeat as advised by your healthcare provider. Syphilis Women at higher risk for infection At routine exams. Talk with your healthcare provider. Thyroid-Stimulating Hormone (TSH) Women in this age group with symptoms of thyroid dysfunction Talk with your healthcare provider Tuberculosis Women at higher risk for infection Talk with your healthcare provider Vision All women in this age group Every 1 to 2 years. If you have a chronic health condition, ask your eye care provider if you need exams more often. Counseling Who needs it How often Diet and exercise Women who are overweight or obese When diagnosed, and then at routine exams Fall prevention (exercise and vitamin D supplements) All women in this age group At routine exams Sexually transmitted infection (STI) prevention Women at higher risk for infection At routine exams. Talk with your healthcare provider. Use of tobacco and the health effects it can cause All women in this age group Every exam Last Reviewed Date: 2023 00:00:00 ?? 8787-6608 [employer]. All rights reserved. This information is not intended as a substitute for professional medical care. Always follow your healthcare professional's instructions. ?? Patient Care team information Care Team Personnel Name: Alyssa Copeland NP Position: S PCO Associate Professional Member Role: PCP Address: [address] [place] [address] Telecom: Care Team Related Persons Name: JURGEN DOAN Name: JOESPH JONATAN Name: RODNEY HORTON Insurance Providers Guarantor name: [facility] Health Plan Information #: 1 Payer: MEDICARE B Payer Identifier: NA Member Number: [id number] Group Number: Subscriber Identifier: [id number] Relationship to Subscriber: self Coverage Type: NA Coverage Verification Date: NA Telecom: NA Address: Health Plan Information #: 2 Payer: [employer] SECONDARY ONLY Payer Identifier: NA Member Number: [id number] Group Number: NA Subscriber Identifier: [id number] Relationship to Subscriber: self Coverage Type: Medicare Other Coverage Verification Date: NA Telecom: Address:
--- NOTE | 2024-11-16 08:53 | A.OFFVIS_ITS ---
Intake Visit Reasons: New prob-Rt 4th digit weakness/limited ROM Intake Note: Razia is a 69 year old right hand dominant female who presents today for a new problem visit for her right hand 4th digit weakness and limited range of motion. Patient is status post right hand carpal tunnel release, DOS: 05/11/24 w/ Dr Holly, and on 05/29/24 patient fell on and outstretched right hand. She expresses she can make a fist however it feels weak. She's expressing she noticed a bump at the base of her 4th right hand digit on the palmar aspect and is having difficulty with flexion. She also reports pain and tenderness on the ulnar aspect of right hand. Denies numbness and tingling in the right hand digits. Allergies adhesive Allergy (Severe, Verified 11/16/24 08:57) breaks out clindamycin Allergy (Severe, Verified 11/16/24 08:57) C dif penicillin V Allergy (Unknown, Verified 11/16/24 08:57) rash oxycodone (OxyContin) Adverse Reaction (Unknown, Verified 11/16/24 08:57) Stomach Upset sulfa Allergy (Unknown, Uncoded 11/16/24 08:57) rash in body HPI HPI New prob-Rt 4th digit weakness/limited ROM: Details: Razia is a 69 year old right hand dominant woman who returns with complaints of right ring finger pain & weakness, S/P fall, DOI: 05/29/24. She says she fell on her outstretched hand while at home. She complains of weakness in her right hand, particularly of the ring finger. She says she can make a fist but this is weak. She has some pain in her palm at the base of her ring finger, and she complains of pain in the ulnar aspect of her hand. After she fell she describes pain in the hypothenar eminence, which has resolved. She denies any locking or catching. She has a hx of a right carpal tunnel release, DOS: 05/11/24. She denies any right hand numbness. 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 Review of Systems Const All systems reviewed & are unremarkable except as noted in HPI and below Physical Exam Const General: no acute distress and alert Orientation/consciousness: patient oriented x3 Neuro General: patient oriented x3 Extrem Other: Evaluation of Right Upper Extremity: The patient is alert, oriented, and in no acute distress Neuro: Median, Ulnar, Radial nerves motor and sensory intact and sensation is normal to the tips of all digits Vascular: Cap refill brisk ROM: She can make a fist and extend all her digits When making a fist, she had discomfort over dorsal aspect of the proximal phalanx between MCP & PIP joints of the ring finger No pain with resisted FDS or FDP of the ring finger No pain with resisted finger extension, including of the ring finger No visible or palpable locking or catching Most tender over the ring finger a1 jarvis Hypothenar eminence non tender Hook of the hamate non-tender Pisiform non-tender Radiographs: 3 views of the right hand were taken and viewed by me today in clinic. 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 Psych Appearance: grossly normal Affect: normal affect Attitude: cooperative Assessment & Plan Assessment & Plan (1) Right hand pain: Code(s): M79.641 - Pain in right hand Category: Medical (2) Arthritis of finger of right hand: Comment: R SF DIP Code(s): M19.041 - Primary osteoarthritis, right hand Category: Medical Plan Assessment & Plan: 1. Right hand pain, primarily of the ring finger S/P fall, DOI: 05/29/24 Tender over the ring finger a1 jarvis, possible early trigger finger No locking or catching Discomfort over the dorsum of the proximal phalanx may be secondary to some tightness I educated her about this condition & trigger fingers I discussed treatment options I recommend activity modification, and she is in agreement I ordered OT hand therapy to work on ROM, stretching, strengthening, and nor malizing function. She says she would like t go to [facility] for this as she attends therapy there for her back. She will follow up prn 2. Right carpal tunnel syndrome, S/P release DOS: 05/29/24 Pre-operatively with dense numbness Now with normal sensation She is happy with the results of her surgery 3. Left basal joint arthritis 4. Left carpal tunnel syndrome, S/P release DOS: ~10/[address] Shipley at [facility] Normal sensation following surgery No complaints today 5. Right small finger DIP joint arthritis History of mucous cyst excision DOS: 10/[address] Shipley at [facility] No recurrence at present Scribed for Ansley Holly MD by Jose Goncalves, medical technician assistant, on 11/16/24 at 9:05 AM, EST. Orders: Orders XR hand RT min 3V Today M79.641 - Pain in right hand OT Evaluation and Treatment Today M79.641 - Pain in right hand Coding Level of Care Code Est Pt Level 3 (02814) Diagnoses Right hand pain M79.641 Arthritis of finger of right hand M19.041
--- OUTSIDE RECORDS SUMMARY | 2024-11-16 09:07 | XMS_ITS | Patient Health Record ---
Author Organization [facility] Address [address] [place] [id number] Care Team Providers Care Vp Account Director Name Role Phone Phipps Trevor Unavailable [phone] Reason For Referral No Information Plan Of Treatment No Information
--- OUTSIDE RECORDS SUMMARY | 2024-11-16 09:07 | XMS_ITS ---
Author Name [facility] Organization Unknown Allergies Allergen Reaction Severity Comment Documented Date Source Statu s SULFA ANTIBIOTICS RASH/DERMATITI S 11/10/2023 [facility] active DOXYCYCLINE OTHER (SEE COMMENTS) Patient reports perioral dermatitis [facility] OXYCODONE-ACETAMI NOPHEN DELERIUM/CONFU PADMINI/PSYCHOSIS [facility] PENICILLINS RASH/DERMATITI S [facility] Problems Problem Status Onset Date Problem Type Date of Resoluti on Source Pain in left ankle and joints of left foot active EncounterDiagnosisAct [facility] Pain in right ankle and joints of right foot active EncounterDiagnosisAct CCT Encounters Encounter Type Encounter Reason Primary Diagnosis Location Date Ambulatory [facility] 11/10/2023 Ambulatory Pain in left ankle and joints of left foot Pain in left ankle and joints of left foot [facility] 11/10/2023 Care Team Organization Name Specialty Phone Email Start Date End [facility] 11/10/2023 06/08/2024 [facility] NO PCP Primary Care 11/10/2023 [facility] 10/13/2023
--- OUTSIDE RECORDS SUMMARY | 2024-11-16 09:08 | XMS_ITS | Clinical Summary ---
Author Organization [facility] Address [address] [place] [address] Care Team Providers Care Agents' Records Clerk Name Role Phone Pcp, No Primary Care Provider Unavailabl e Allergies Active Allergy Reactions Criticality Noted Date Comments Doxycycline Other (See Comments) 11/10/2023 Patient reports perioral dermatitis Penicillins Rash/Dermatitis Low 11/10/2023 Oxycodone-Acetaminophe n Delirium/Confusion/P sychosis Low 11/10/2023 Sulfa Antibiotics Rash/Dermatitis Low 11/10/2023 Social History Tobacco Use Types Packs/Day Years Used Date Smoking Tobacco: Never Assessed Comments Unknown Sex and Gender Information Value Date Recorded Sex Assigned at Not on file Legal Sex Female 10:53 AM EDT Gender Identity Not on file Sexual Orientation Not on file Plan of Treatment Health Maintenance Due Date Last Done Comments Hepatitis C Virus Screening 1955 DTaP/Tdap/Td Vaccines (1 - Tdap) 09/14/1974 Mammogram 1995 Colonoscopy 09/14/2000 Pneumococcal Vaccines 50+ (1 of 1 - PCV) 09/14/2005 Zoster (Shingles) Vaccine (1 of 2) 09/14/2005 DXA Bone Density (Females,Ages 65 and older) 09/14/2020 COVID-19 Vaccine ( season) 2023 12/13/2022, 12/06/2021, 06/20/2021, Additional history exists Influenza Vaccine 10/21/2024 11/22/2022, , 12/14/2020, Additional history exists RSV Vaccine 60 years and older and Patients (1 - 1-dose 75+ series) 09/14/2030 Hepatitis B Vaccines Aged Out No long er eligible based on patient's age to complete this topic Insurance MEDICARE PART A & B [place] [id number] Care Teams Agents' Records Clerk Relationship Specialty Start Date End Date Pcp, No PCP - General General Medicine 11/10/23
== END 2024-11-16 09:23 | disposition home or self-care (01) ==
LOC: HO.HOS 08:44
PROVIDERS: PCP Nurse Practitioner Family; Visit Provider Orthopaedic Surgery
DX: M79.641 Pain in right hand (principal); M19.041 Primary osteoarthritis, right hand
CPT/HCPCS: 99213

== ENCOUNTER → 2024-11-16 08:45 | Outpatient (BNV) | payer MEDICARE, SELFPAY | PROVIDERS: Visit Provider Radiology Diagnostic Radiology | DX: M15.4 Erosive (osteo)arthritis (principal) | CPT/HCPCS: 73130 ==

== ENCOUNTER 2024-11-16 10:40 | Outpatient (REF) | payer MEDICARE, SELFPAY ==
--- NOTE | ~2024-11-16 | XR_ITS ---
EXAMINATION: XR HAND 3 OR MORE VIEWS RIGHT HISTORY: M79.641 - Pain in right hand COMPARISON: Correlation is made with plain films of the right 5th finger dated 04/28/2023. FINDINGS: Four views of the right hand are submitted. The bones are osteopenic. There is no fracture or dislocation. There is severe erosive osteoarthritis of the DIP joint of the 5th finger. The remaining joint spaces are maintained. The soft tissues are unremarkable. 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 Electronically signed by: Trevor Mirza MD 11/16/2024 09:01 AM EDT
--- OUTSIDE RECORDS SUMMARY | 2024-11-17 12:05 | XMS_ITS | Patient Health Record ---
Author Organization [facility] Address [address] [place] [id number] Care Team Providers Care Archeology Professor Name Role Phone Phipps Trveor Unavailable [phone] Reason For Referral No Information Plan Of Treatment No Information
--- OUTSIDE RECORDS SUMMARY | 2024-11-17 12:05 | XMS_ITS | Clinical Summary ---
Author Organization [facility] Address [address] [place] [address] Care Team Providers Care Marine Equipment Test Engineer Name Role Phone Pcp, No Primary Care [...] topic Insurance MEDICARE PART A & B [place] [id number] Care Teams Marine Equipment Test Engineer Relationship Specialty Start Date End Date Pcp, No PCP - General General Medicine 11/10/23
== END 2024-11-16 10:41 | disposition home or self-care (01) ==
LOC: HO.HOSX 10:40
PROVIDERS: Visit Provider Orthopaedic Surgery
DX: M79.641 Pain in right hand (principal); M19.041 Primary osteoarthritis, right hand
CPT/HCPCS: 73130; 99212

== ENCOUNTER 2024-12-08 09:37 | Outpatient (RCR) | payer MEDICARE, SELFPAY ==
--- NOTE | 2024-11-25 11:27 | MHC.OT.OEV ---
[facility] Office [address] [facility] [phone] F: [phone] F: [phone] Occupational Therapy Evaluation Patient Name: Razia Block Diagnosis: (R)ring finger pain Date of Onset: 05/29/24 Date of Surgery: 05/11/24 Attending Provider: Ansley Holly Prescribed Treatment: MD Follow Up Appointment: History of Current Condition: Patient is a 69 y/o female with PMHX of DM who had a (R) CTR (05/11/2024) 3 weeks after she sustained a mechanical fall form stepping over a little dog fence. Months later she stated she noticed her hand felt very week. She was seen by Ortho who stated patient had stage I trigger finger of the (R)MF. She denies pain and numbness/tingling but states her hand just feels week . 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 She lives alone and has one dog. Her adult daughter lives close by. She enjoys walking her dog, marybeth, and gardening. 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 min ADLs/IADLs Sleep: Sleeping through the night Driving: (I) with driving Vision: Balance: Pain Assessment Pain Score: Pain Scale Used: Pain Location and Description: no pain Aggravating Factors: Alleviating Factors: Skin and Soft Tissue Assessment Skin and Soft Tissue: Comments: Skin intact palpable nodule at base of MF No edema present Nerve assessment Ulnar Nerve: Median Nerve: Radial Nerve: Comments: Sensory Assessment Temperature: Light Touch: Proprioception: Vibration: Comments: Edema Assessment Upper Extremity: Lower Extremity: Comments: Dexterity Assessment Dexterity: Comments: finger opposition WFLs Special Tests Comments: AROM(PROM) Strength Cervical Cervical Flexion: Cervical Extension: Cervical Lateral Flexion: Cervical Rotation: Comments: Shoulder Flexion: Extension: Abduction: Internal Rotation: External Rotation: Comments: Flexion: Extension: Abduction: Internal Rotation: External Rotation: Comments: Elbow Flexion: Extension: Pronation: Supination: Comments: Flexion: Extension: Pronation: Supination: Comments: Wrist Flexion: 68 Extension: 50 Ulnar Deviation: 40 Radial Deviation: 38 Comments: Flexion: Extension: Ulnar Deviation: Radial Deviation: Comments: Thumb Thumb CMC Flexion: Thumb MCP Flexion: Thumb IP Flexion: Radial Abduction: Palmar Abduction: Webster (Kapandji 0-10): Comments: Digits Index MCP: PIP: DIP: Long MCP: PIP: DIP: Ring MCP: 80 PIP: 80 DIP: 70 Small MCP: PIP: DIP: Comments: Gross Grasp: (R)25lbs.; (L)27lbs. Lateral Pinch: Two-Point Pinch: Three-Jaw Evaristo: Comments: Patient Education Primary Language: City Clerk Required: No Current Knowledge: Understands information with skills for self-management Teaching Method: Demonstration Handouts Verbal Education Needs Identified on Evaluation: Disease Information Equipment Use Exercise How did patient/family demonstrate learning? Patient demonstrates Patient verbalizes Barriers to Learning: None Readiness for Learning: Accepting Who was educated? Patient Comments: Plan of Care Assessment: Based on initial OT evaluation patient presents with pain, impaired ROM, impaired strength and impaired performance during self care tasks. It was observed patient report pain at the volar plate of the MF and there was palpable nodule present; at this time there was no locking or catching. Quick DASH score= 4.5% indicating patient's perceived impairment of UE during self care tasks. Due to patient's documented impairments it is recommended that patient receive a short course of therapy to address her deficits. Patient will be leaving for a trip to [place] in the next 2 weeks which will shorten her course of therapy to two weeks. STG Duration: Short Term Goals: (see below) LTG Duration: 2 weeks Industrial Therapist Goals: Patient will be (I) with finger orthosis wear schedule Patient will increase wrist extension to at least 65* Patient will increase wrist flexion to at least 75* Patient will have (R)MF ROM WFLs Patient will be (I) with self massage techniques Patient will be (I) with joint protection techniques Patient will be (I) with HEP Frequency and Duration: The patient will be seen 1x a week for 2 weeks Treatment Plan: Therapeutic Exercise Therapeutic Activity Home Exercise Program Splinting Neuro Re-ed Patient Education Desensitization/Sensory Re-ed Edema Control ADL Training Ultrasound NMES Iontophoresis Paraffin Fluidotherapy MHP Cold Packs Joint Mobilization Soft Tissue Mobilization Kinesiotaping Other (see comments) Skilled OT eval and treat Electronically Signed By: DELILAH Le/Stephanie, CLT Reviewed/agree with student documentation: Therapist: Please sign and return to therapist, Thank you for your referral.
--- NOTE | 2024-12-08 13:03 | MHC.OT.DC ---
[facility] Office [address] [facility] [phone] F: [phone] F: [phone] Occupational Therapy Discharge Note Patient Name: Razia Block Provider: Ansley Holly Diagnosis: (R)ring finger pain Date of Surgery: 05/11/24 Date of Evaluation: 11/24/24 Date of Discharge: Treatments to Date: 3 Cancellations to Date: No Shows to Date: Discharge Status: Achieved Goals Improved Function Independent with HEP Patient Elected to Stop Discharge Summary: Patient is d/c'd from skilled OT as she achieved her maximal potential during therapy. Patient reports no pain and states her finger is felling better. her PIP had some tightness and patient was educated on PROM techniques to achieve full ROM. Next week she will be leaving to [place] for a 2 week vacation. At this time she is (I) with her HEP and compliant with her splint schedule. Patient will contact therapy if she has any questions or concerns. Thank you for your referral. Electronically Signed By: DELILAH Le/Stephanie, DELLA Reviewed/agree with student documentation: Therapist: Please Sign and return to therapist, thank you for your referral.
== END 2025-01-18 10:43 | disposition home or self-care (01) ==
LOC: HO.OT 09:37
PROVIDERS: PCP Nurse Practitioner Family; Visit Provider Orthopaedic Surgery
DX: M79.641 Pain in right hand (principal)
CPT/HCPCS: 97110; 97140; 97165